=== PATIENT | female | born 1945 | race Caucasian/White ===

== ENCOUNTER 2016-06-29 12:09 | Inpatient (IN) | payer MEDICARE, MEDICAID ==
[2016-06-29] MEDS ORDERED: ASPIRIN 81 MG TABLET, CHEWABLE PO ONE (12:25)
--- NOTE | 2016-06-29 12:25 | ER Document Report ---
ED Medical Screen (RME) - General Stated Complaint: DIFFICULTY BREATHING Notes: anxiety and overwhelmed with social issues with neighbor at home chest pressure substernal, without radiation that started yesterday and has not gone away. denies h/o chest pain admits to nausea over the past couple of days (+) BRBPR (chronic) PMH: HTN, DM, chest pain former tobacco use unknown HLD due for a cardiac stress test on 07/23, never had one before, denies cardiac cath I have greeted and performed a rapid initial assessment of this patient. A comprehensive ED assessment and evaluation of the patient, analysis of test results and completion of the medical decision making process will be conducted by additional ED providers. TRAVEL OUTSIDE OF THE [place] IN LAST 30 DAYS: No - Related Data Allergies/Adverse Reactions: cephalexin monohydrate [From Keflex] Allergy (Verified 06/29/16 12:15) ciprofloxacin [From Cipro] Allergy (Verified 06/29/16 12:15) ciprofloxacin HCl [From Cipro] Allergy (Verified 06/29/16 12:15) erythromycin base [Erythromycin Base] Allergy (Verified 06/29/16 12:15) Penicillins Allergy (Verified 06/29/16 12:15) Past Medical History - Past Medical History Cardiac Medical History: Reports: Hx Congestive Heart Failure, Hx Hypertension Pulmonary Medical History: Reports: Hx Asthma, Hx COPD, Hx Pneumonia Denies: Hx Tuberculosis Endocrine Medical History: Reports: Hx Diabetes Mellitus Type 2 GI Medical History: Reports: Hx Gastroesophageal Reflux Disease Psychiatric Medical History: Denies: Hx Depression Past Surgical History: Reports: Hx Appendectomy, Hx Hysterectomy - Immunizations Hx Diphtheria, Pertussis, Tetanus Vaccination: No
[2016-06-29 14:01] LABS: ABSOLUTE BASOPHILS # (AUTO) 0.1 10^3/uL (0.0-0.2); ABSOLUTE EOSINOPHILS # (AUTO) 0.1 10^3/uL (0.0-0.6); ABSOLUTE LYMPHOCYTES (AUTO) 1.6 10^3/uL (0.5-4.7); ABSOLUTE MONOCYTES (AUTO) 0.8 10^3/uL (0.1-1.4); ABSOLUTE NEUT (AUTO) 7.2 10^3/uL (1.7-8.2); BASOPHILS % (AUTO) 0.6 % (0-2); EOSINOPHILS % (AUTO) 1.2 % (0-6); HGB HCT DIFFERENCE -1.6; LYMPHOCYTES % (AUTO) 16.3 % (13-45); MEAN CORPUSCULAR HEMOGLOBIN 19.9 pg (27.0-33.4); MEAN CORPUSCULAR HGB CONC 30.9 g/dL (32.0-36.0); MEAN CORPUSCULAR VOLUME 65 fl (80-97); MONOCYTES % (AUTO) 8.1 % (3-13); RED CELL DISTRIBUTION WIDTH 18.5 % (11.5-14.0); SEGMENTED NEUTROPHILS % (AUTO) 73.8 % (42-78); WHITE BLOOD COUNT 9.7 10^3/uL (4.0-10.5)
[2016-06-29 14:20] LABS: ALANINE AMINOTRANSFERASE 17 U/L (9-52); ALBUMIN 2.6 g/dL (3.5-5.0); ALKALINE PHOSPHATASE 117 U/L (38-126); ANION GAP 13 (5-19); ASPARTATE AMINO TRANSFERASE 12 U/L (14-36); BILIRUBIN,TOTAL 0.4 mg/dL (0.2-1.3); BLOOD UREA NITROGEN 14 mg/dL (7-20); CALCIUM 7.9 mg/dL (8.4-10.2); CARBON DIOXIDE 24 mmol/L (22-30); CHLORIDE 105 mmol/L (98-107); CREATINE KINASE 22 U/L (30-135); CREATININE RESULT 0.89 mg/dL (0.52-1.25); GLUCOSE 85 mg/dL (75-110); LIPASE 39.9 U/L (23-300); POTASSIUM 3.4 mmol/L (3.6-5.0); SODIUM 141.5 mmol/L (137-145); TOTAL PROTEIN 6.8 g/dL (6.3-8.2)
[2016-06-29 14:22] LABS: ANISOCYTOSIS 1+; HYPOCHROMASIA 1+; MICROCYTOSIS 3+; PLATELET CLUMPS PRESENT
[2016-06-29 14:28] LABS: HEMOGLOBIN 6.8 g/dL (12.0-15.5)
[2016-06-29 14:39] LABS: CREATINE KINASE MB 0.23 ng/mL (<4.55); TROPONIN I < 0.012 ng/mL
[2016-06-29] MEDS ORDERED: NORMAL SALINE 1000 ML 500 ML IV ONE (15:48)
[2016-06-29] MEDS ORDERED: NORMAL SALINE 250 ML IV PRN ×3 (15:59→16:54)
[2016-06-29] MEDS ORDERED: POTASSIUM CHLORIDE 10 MEQ TABLET.SA PO ONE (15:59)
[2016-06-29] MEDS ORDERED: MAGNESIUM SULFATE/D5W 100 ML IV ONE (15:59)
--- NOTE | 2016-06-29 16:04 | EKG REPORT ---
SEVERITY:- ABNORMAL ECG - SINUS RHYTHM RIGHT BUNDLE BRANCH BLOCK : Confirmed by: Juventino Cosme 29-Jun-2016 16:03:12
[2016-06-29] MEDS ORDERED: IPRATROPIUM/ALBUTEROL 0.5-2.5 MG/3 ML AMPUL NEB PRN (16:49)
[2016-06-29] MEDS ORDERED: ACETAMINOPHEN 325 MG TABLET PO PRN (16:49)
[2016-06-29] MEDS ORDERED: DEXTROSE 50%-WATER 25 GM/50 ML DISP.SYRIN IV PRN ×2 (16:54)
[2016-06-29] MEDS ORDERED: GLUCAGON,HUMAN RECOMB 1 MG INJ IM PRN (16:54)
[2016-06-29] MEDS ORDERED: DEXTROSE 40% GEL 15 GM TUBE PO PRN ×2 (16:54)
[2016-06-29] MEDS ORDERED: INSULIN LISPRO 100 UNIT/ML 3 ML VIAL SUBCUT PRN (16:54)
--- NOTE | 2016-06-29 16:59 | ER Document Report ---
ED General - General Chief Complaint: Shortness Of Breath Stated Complaint: DIFFICULTY BREATHING TRAVEL OUTSIDE OF THE [place] IN LAST 30 DAYS: No - HPI Patient complains to provider of: shortness of breath weakness difficulty breathing chest pressure Notes: Patient presents today with multiple complaints most concerning of which chest pressure shortness of breath difficulty breathing. Patient states is been ongoing for the last 2 days. Patient states no recent travel no recent antibiotics denies any nausea vomiting diarrhea. Patient denies any dark or bloody stools. Patient denies any changes to her medications. Patient denies any alcohol. Patient states used to be a smoker". - Related Data Allergies/Adverse Reactions: cephalexin monohydrate [From Keflex] Allergy (Verified 06/29/16 12:15) ciprofloxacin [From Cipro] Allergy (Verified 06/29/16 12:15) ciprofloxacin HCl [From Cipro] Allergy (Verified 06/29/16 12:15) erythromycin base [Erythromycin Base] Allergy (Verified 06/29/16 12:15) Penicillins Allergy (Verified 06/29/16 12:15) Home Medications: Current Home Medications Aspirin [Aspirin 81 mg Chewable Tablet] 81 mg PO DAILY 06/29/16 [History] Atenolol [Tenormin 50 mg Tablet] 50 mg PO BID 06/29/16 [History] Ferrous Sulfate [Iron] 325 mg PO BID 06/29/16 [History] Lisinopril [Prinivil 2.5 mg Tablet] 2.5 mg PO DAILY 06/29/16 [History] Metformin HCl [Metformin HCl ER] 1,000 mg PO QPM 06/29/16 [History] Metformin HCl [Metformin HCl ER] 500 mg PO QAM 06/29/16 [History] Omeprazole 20 mg PO DAILY 06/29/16 [History] Past Medical History - Social History Smoking Status: Unknown if Ever Smoked Family History: Reviewed & Not Pertinent - Past Medical History Cardiac Medical History: Reports: Hx Congestive Heart Failure, Hx Hypertension Pulmonary Medical History: Reports: Hx Asthma, Hx COPD, Hx Pneumonia Denies: Hx Tuberculosis Endocrine Medical History: Reports: Hx Diabetes Mellitus Type 2 GI Medical History: Reports: Hx Gastroesophageal Reflux Disease Psychiatric Medical History: Denies: Hx Depression Past Surgical History: Reports: Hx Appendectomy, Hx Hysterectomy - Immunizations Hx Diphtheria, Pertussis, Tetanus Vaccination: No Review of Systems - Review of Systems Constitutional: Weakness EENT: No symptoms reported Cardiovascular: Chest pain Respiratory: Short of breath Gastrointestinal: No symptoms reported Genitourinary: No symptoms reported Female Genitourinary: No symptoms reported Musculoskeletal: No symptoms reported Skin: No symptoms reported Hematologic/Lymphatic: No symptoms reported Neurological/Psychological: No symptoms reported -: Yes All other systems reviewed and negative Physical Exam - Vital signs Vitals: Temp Pulse Resp BP 97.8 F 81 22 H 103/42 L 06/29/16 12:17 06/29/16 12:17 06/29/16 12:17 06/29/16 12:17 Interpretation: Normal - General General appearance: Appears well, Alert - HEENT Head: Normocephalic, Atraumatic Eyes: Normal Pupils: PERRL - Respiratory Respiratory status: No respiratory distress Chest status: Nontender Breath sounds: Normal Chest palpation: Normal - Cardiovascular Rhythm: Regular Heart sounds: Normal auscultation Murmur: No - Abdominal Inspection: Obese Distension: No distension Bowel sounds: Normal Tenderness: Nontender Organomegaly: No organomegaly - Rectal Tenderness: Yes Stool: Heme negative Hemorrhoids: None - Back Back: Normal, Nontender - Extremities General upper extremity: Normal inspection, Nontender, Normal color, Normal ROM , Normal temperature General lower extremity: Normal inspection, Nontender, Normal color, Normal ROM , Normal temperature, Normal weight bearing. No: Sana's sign - Neurological Neuro grossly intact: Yes Cognition: Normal Orientation: AAOx4 Cameron Coma Scale Eye Opening: Spontaneous Cameron Coma Scale Verbal: Oriented [place] Coma Scale Motor: Obeys Commands K[place]ly Coma Scale Total: 15 Speech: Normal Motor strength normal: LUE, RUE, LLE, RLE Sensory: Normal - Psychological Associated symptoms: Normal affect, Normal mood - Skin Skin Temperature: Warm Skin Moisture: Dry Skin Color: Normal Course - Re-evaluation Re-evalutation: 06/29/16 22:26 Patient workup does show patient has anemia more likely causes him of her symptoms started chest pain shortness of breath. Patient will need to have a transfusion. Concern for nodule seen in chest. Discussed with PCP agrees with CTA CT of chest to evaluate nodules also requesting a CT of the abdomen to look for metastatic disease. Patient was admitted. This follow-up on CT scans with covering weekend physician Dr. Lepe informed patient has diffuse metastatic disease states he would reviewed reports. Patient will have blood transfusion will be admitted for further evaluation. - Vital Signs Vital signs: Temp Pulse Resp BP Pulse Ox 98.7 F 75 20 87/48 L 100 06/29/16 21:36 06/29/16 21:36 06/29/16 21:36 06/29/16 21:36 06/29/16 21:36 - Laboratory Result Diagrams: 06/29/16 13:15 06/29/16 13:15 Laboratory results interpreted by me: 06/29/16 06/29/16 06/29/16 13:15 13:15 13:15 RBC 3.40 L Hgb 6.8 L Hct 22.0 L MCV 65 L MCH 19.9 L MCHC 30.9 L RDW 18.5 H Plt Count 551 H Potassium 3.4 L Calcium 7.9 L Magnesium 1.3 L AST 12 L Creatine Kinase 22 L Albumin 2.6 L Crossmatch 06/29/16 15:35 RBC Hgb Hct MCV MCH MCHC RDW Plt Count Potassium Calcium Magnesium AST Creatine Kinase Albumin Crossmatch See Detail Critical Care Note - Critical Care Note Total time excluding time spent on procedures (mins): 35 Comments: Multiple evaluations patient with anemia requiring transfusion Discharge - Discharge Clinical Impression: Anemia requiring transfusions, Shortness of breath, Chest pressure, Multiple lung nodules, Pelvic mass Condition: Good Disposition: HOME, SELF-CARE Admitting Provider: [facility] Unit Admitted: [facility]
--- NOTE | 2016-06-29 17:57 | PDOC H&P ---
History of Present Illness Admission Date/PCP: Sloane Sanders Patient complains of: Shortness of the breath History of Present Illness: ISH VANN is a 71 year old female This is a 71-year-old female with a significant history of COPD and chronic smoker history of the hypertensin's hyperlipidemia and morbid obesity and also history of the cardiomyopathy and multiple other comorbidity came to the emergency department complaining of shortness of the breath and cough and congestions since last several days also complains chest pain heaviness in the chest on and off this last couple of days and getting more worse and is very noncompliance patient is not following is supposed to also found performed anemia hemoglobin was 6.8. Patient's also see her Dr. Duke in April and scheduled for endoscopy and colonoscopy patient's missed that appointment also scheduled for a stress test per cardiology also missed appointment patient also have a some on and off blood in the stool for last several years and patient on and off anemia problem . Patient also noticed some [place] irritations and the bleeding but not today patient have a complete hysterectomy done in by Dr. garnett. When I saw the patient in the ER patient is comfortably laying on a bad any chest pain and no shortness of the breath since chest x-ray and pulmonary nodules and patient's guaiac stool is negative to this point so granddaughters in the bedside and discussed with the granddaughter of the patient's conditions and admitted in the hospital for further evaluation and treatment patient also goingi received the doing the blood. Past Medical History Cardiac Medical History: Reports: Congestive Heart Failure, Hypertension Pulmonary Medical History: Reports: Asthma, Chronic Obstructive Pulmonary Disease (COPD), Pneumonia Denies: Tuberculosis Endocrine Medical History: Reports: Diabetes Mellitus Type 2 GI Medical History: Reports: Gastroesophageal Reflux Disease Psychiatric Medical History: Denies: Depression Hematology: Reports: Anemia Past Surgical History Past Surgical History: Reports: Appendectomy, Hysterectomy Social History Smoking Status: Current Every Day Smoker Frequency of Alcohol Use: None Hx Recreational Drug Use: No Hx Prescription Drug Abuse: No Family History Family History: Reviewed & Not Pertinent Parental Family History Reviewed: Yes Children Family History Reviewed: Yes Sibling(s) Family History Reviewed.: Yes Medication/Allergy Home Medications: Albuterol Sulfate [Proair HFA Inhalation Aerosol 8.5 gm MDI] 8.5 gm PO DAILY 02/07 Atenolol [Tenormin 50 mg Tablet] 50 mg PO DAILY 11/02/13 Clopidogrel Bisulfate [Plavix] 75 mg .ROUTE DAILY 11/02/13 Diphenhydramine HCl 25 mg PO ACBRKFST 11/02/13 Fluconazole [Diflucan] 150 mg PO DAILY 11/02/13 Gabapentin 100 mg PO DAILY 11/02/13 Lisinopril [Prinivil 2.5 mg Tablet] 2.5 mg PO DAILY 11/02/13 Metformin HCl [Glucophage 500 mg Tablet] 500 mg PO BID 11/02/13 Omeprazole 20 mg PO DAILY 11/02/13 Ferrous Sulfate [Feosol 325 mg Tablet] 325 mg PO BIDPCBS #60 tablet 11/07/13 Furosemide [Lasix 20 mg Tablet] 20 mg PO DAILY #30 tablet 11/07/13 Guaifenesin [Robitussin Syrup 200 mg/10 ml Ud Cup] 200 mg PO Q6HP PRN #400 udc 11/07/13 Nystatin [Mycostatin Topical Powder 15 gm] 1 applic TP BID #1 bottle 11/07/13 Prednisone [Deltasone 20 mg Tablet] 20 mg PO DAILY #7 tablet 11/07/13 Doxycycline Hyclate 100 mg PO BID #20 tablet. 09/28/14 Prednisone [Deltasone 10 mg Tablet] 10 mg PO ASDIR PRN #21 tablet 09/28/14 Allergies/Adverse Reactions: cephalexin monohydrate [From Keflex] Allergy (Verified 06/29/16 12:15) ciprofloxacin [From Cipro] Allergy (Verified 06/29/16 12:15) ciprofloxacin HCl [From Cipro] Allergy (Verified 06/29/16 12:15) erythromycin base [Erythromycin Base] Allergy (Verified 06/29/16 12:15) Penicillins Allergy (Verified 06/29/16 12:15) Review of Systems Constitutional: PRESENT: fatigue, weakness. ABSENT: chills, fever(s), headache( s), weight gain, weight loss Eyes: ABSENT: visual disturbances Ears: ABSENT: hearing changes Cardiovascular: PRESENT: chest pain, dyspnea on exertion. ABSENT: edema, orthropnea, palpitations Respiratory: PRESENT: cough, dyspnea. ABSENT: hemoptysis Gastrointestinal: ABSENT: abdominal pain, constipation, diarrhea, hematemesis, hematochezia, nausea, vomiting Genitourinary: ABSENT: dysuria, hematuria Musculoskeletal: ABSENT: joint swelling Integumentary: ABSENT: rash, wounds Neurological: ABSENT: abnormal gait, abnormal speech, confusion, dizziness, focal weakness, syncope Psychiatric: ABSENT: anxiety, depression, homidical ideation, suicidal ideation Endocrine: ABSENT: cold intolerance, heat intolerance, menstrual abnormalities, polydipsia, polyuria Hematologic/Lymphatic: ABSENT: easy bleeding, easy bruising, lymphadenopathy Physical Exam Vital Signs: Temp Pulse Resp BP Pulse Ox 97.8 F 81 22 H 103/42 L 06/29/16 12:17 06/29/16 12:17 06/29/16 12:17 06/29/16 12:17 Intake & Output 06/28/16 06/29/16 06/30/16 06:59 06:59 06:59 Weight 132.903 kg General appearance: PRESENT: no acute distress Head exam: PRESENT: normocephalic Eye exam: PRESENT: conjunctiva pale, PERRLA Mouth exam: PRESENT: neck supple Neck exam: ABSENT: carotid bruit, full ROM, JVD, lymphadenopathy, meningismus, tenderness, thyromegaly, tracheal deviation, tracheostomy, other Respiratory exam: PRESENT: clear to auscultation shireen. ABSENT: wheezes Cardiovascular exam: PRESENT: +S1, +S2 GI/Abdominal exam: PRESENT: normal bowel sounds, soft. ABSENT: tenderness Rectal exam: PRESENT: heme (-) stool Extremities exam: PRESENT: pedal edema Additional comments: Chronic venous dermatitis in the both lower extremity Neurological exam: PRESENT: alert, awake, oriented to person, oriented to place , oriented to time, oriented to situation Psychiatric exam: PRESENT: anxious Results Laboratory Results: 06/29/16 13:15 06/29/16 13:15 06/29/16 06/29/16 06/29/16 13:15 13:15 13:15 WBC 9.7 RBC 3.40 L Hgb 6.8 L Hct 22.0 L MCV 65 L MCH 19.9 L MCHC 30.9 L RDW 18.5 H Plt Count 551 H Seg Neutrophils % 73.8 Lymphocytes % 16.3 Monocytes % 8.1 Eosinophils % 1.2 Basophils % 0.6 Absolute Neutrophils 7.2 Absolute Lymphocytes 1.6 Absolute Monocytes 0.8 Absolute Eosinophils 0.1 Absolute Basophils 0.1 Sodium 141.5 Potassium 3.4 L Chloride 105 Carbon Dioxide 24 Anion Gap 13 BUN 14 Creatinine 0.89 Est GFR ( Amer) > 60 Est GFR (Non-Af Amer) > 60 Glucose 85 Calcium 7.9 L Magnesium 1.3 L Total Bilirubin 0.4 AST 12 L ALT 17 Alkaline Phosphatase 117 Total Protein 6.8 Albumin 2.6 L Lipase 39.9 Stool Occult Blood Blood Type Antibody Screen 06/29/16 06/29/16 15:35 15:35 WBC RBC Hgb Hct MCV MCH MCHC RDW Plt Count Seg Neutrophils % Lymphocytes % Monocytes % Eosinophils % Basophils % Absolute Neutrophils Absolute Lymphocytes Absolute Monocytes Absolute Eosinophils Absolute Basophils Sodium Potassium Chloride Carbon Dioxide Anion Gap BUN Creatinine Est GFR ( Amer) Est GFR (Non-Af Amer) Glucose Calcium Magnesium Total Bilirubin AST ALT Alkaline Phosphatase Total Protein Albumin Lipase Stool Occult Blood NEGATIVE Blood Type A POSITIVE Antibody Screen NEGATIVE 06/29/16 06/29/16 13:15 13:15 Creatine Kinase 22 L CK-MB (CK-2) 0.23 Troponin I < 0.012 Impressions: Chest X-Ray 06/29/16 12:25 IMPRESSION: Findings worrisome for multiple pulmonary nodules. Chest CT recommended for followup Assessment & Plan - Diagnosis (1) Anemia requiring transfusions Is this a current diagnosis for this admission?: YesPlan: Transfused 2 units of blood and no sign of any active GI bleed the still consult the GI and also consult the value stream manager evaluations (2) COPD (chronic obstructive pulmonary disease) Qualifiers: COPD type: chronic bronchitis Is this a current diagnosis for this admission?: YesPlan: Nebulizer treatments (3) Chest pressure Is this a current diagnosis for this admission?: YesPlan: We will get cardiac enzymes every 63 and consult the cardiology the multiple risk factor (4) Benign essential HTN Is this a current diagnosis for this admission?: YesPlan: Continue current medications (5) Type II diabetes mellitus Qualifiers: Diabetes mellitus complication status: with unspecified complications Is this a current diagnosis for this admission?: YesPlan: Continues a sliding scale with [facility] protocol (6) Congestive heart failure Qualifiers: Congestive heart failure type: diastolic Congestive heart failure chronicity: chronic Qualified Code(s): I50.32 - Chronic diastolic ( congestive) heart failure Is this a current diagnosis for this admission?: YesPlan: Continues the current medications (7) Venous dermatitis Qualifiers: Laterality: bilateral Qualified Code(s): I83.11 - Varicose veins of right lower extremity with inflammation; I83.12 - Varicose veins of left lower extremity with inflammation Is this a current diagnosis for this admission?: YesPlan: Symmetrical chronic venous insufficiency and patient's see Dr. Terry Lay and wound care as outpatient (8) Multiple lung nodules Is this a current diagnosis for this admission?: YesPlan: Order the CT scan of chest (9) Shortness of breath Is this a current diagnosis for this admission?: YesPlan: From the possible anemia and the COPD - Time Time Spent: 50 to 70 Minutes Medications reviewed and adjusted accordingly: Yes Anticipated discharge: Home - Inpatient Certification Medical Necessity: Significant Comorbidiites Make Outpatient Treatment Too Risky , Need For Continuous Telemetry Monitoring, Need for Nebulizer Therapy and Monitoring of Response Post Hospital Care: D/C Courtroom Deputy Or Calendar Clerk Documentation - Plan Summary Plan Summary: Very extensive discussions with the patient about noncompliance and also discussed with the granddaughter she is taking care of the patient patient's he wants to be her about poa. Assess about the patient's chronic conditions with acute finding and the test results and will see how the patient's does that patient is currently is a full code
[2016-06-29 18:00] LABS: CREATINE KINASE MB < 0.22 ng/mL (<4.55); TROPONIN I < 0.012 ng/mL
[2016-06-29] MEDS: LANSOPRAZOLE 30 MG TAB.RAP.DR PO SCH (19:00)
[2016-06-29 19:45] LABS: FOLATE 4.19 ng/mL (>2.76)
[2016-06-29 23:30] LABS: CREATINE KINASE MB < 0.22 ng/mL (<4.55); TROPONIN I < 0.012 ng/mL
[2016-06-30 04:56] LABS: ABSOLUTE BASOPHILS # (AUTO) 0.1 10^3/uL (0.0-0.2); ABSOLUTE EOSINOPHILS # (AUTO) 0.1 10^3/uL (0.0-0.6); ABSOLUTE LYMPHOCYTES (AUTO) 1.5 10^3/uL (0.5-4.7); ABSOLUTE MONOCYTES (AUTO) 0.8 10^3/uL (0.1-1.4); ABSOLUTE NEUT (AUTO) 7.4 10^3/uL (1.7-8.2); BASOPHILS % (AUTO) 0.5 % (0-2); EOSINOPHILS % (AUTO) 1.2 % (0-6); HEMATOCRIT 23.9 % (36.0-47.0); HGB HCT DIFFERENCE -1.1; LYMPHOCYTES % (AUTO) 15.4 % (13-45); MEAN CORPUSCULAR HEMOGLOBIN 21.3 pg (27.0-33.4); MEAN CORPUSCULAR HGB CONC 31.7 g/dL (32.0-36.0); MEAN CORPUSCULAR VOLUME 67 fl (80-97); RED BLOOD COUNT 3.56 10^6/uL (3.72-5.28); RED CELL DISTRIBUTION WIDTH 21.1 % (11.5-14.0); SEGMENTED NEUTROPHILS % (AUTO) 74.9 % (42-78); WHITE BLOOD COUNT 9.9 10^3/uL (4.0-10.5)
[2016-06-30 05:03] LABS: HEMOGLOBIN 7.6 g/dL (12.0-15.5)
[2016-06-30 05:17] LABS: ANION GAP 8 (5-19); BLOOD UREA NITROGEN 12 mg/dL (7-20); CALCIUM 7.7 mg/dL (8.4-10.2); CARBON DIOXIDE 24 mmol/L (22-30); CHLORIDE 107 mmol/L (98-107); CREATINE KINASE 25 U/L (30-135); CREATININE RESULT 0.85 mg/dL (0.52-1.25); GLUCOSE 87 mg/dL (75-110); POTASSIUM 3.4 mmol/L (3.6-5.0); SODIUM 139.2 mmol/L (137-145)
[2016-06-30 05:31] LABS: CREATINE KINASE MB < 0.22 ng/mL (<4.55); TROPONIN I < 0.012 ng/mL
[2016-06-30] MEDS ORDERED: NORMAL SALINE 250 ML IV PRN ×2 (05:57)
[2016-06-30] MEDS: LANSOPRAZOLE 30 MG TAB.RAP.DR PO SCH ×2 (06:32→17:26)
--- NOTE | 2016-06-30 11:03 | PDOC CONSULTATION ---
Consultation Consult Date: 06/30/16 Attending physician:: CADY ARBOLEDA Consult reason:: Asked by Dr. Arboleda to see patient with severe anemia, colonic mass, pulmonary nodules History of Present Illness Admission Date/PCP: 06/29/16 16:49 Sloane Sanders Patient complains of: Anemia, weakness, rectal bleeding History of Present Illness: 71-year-old female with what seems to be a year-long history of rectal bleeding , she is been passing clots per rectum, was seen as an outpatient by gastroenterology and recommended to have EGD and colonoscopy, but unfortunately transportation issues have prevented her from making her appointments. She presented with a hemoglobin of 7, ferritin of 30, saturation low, consistent with blood loss anemia. Dr. Arboleda admitted her, we recommended workup with CT of the chest abdomen pelvis, this indicated a large left pelvic mass, seems to be contiguous with rectum, sigmoid area, there also were bilateral pulmonary nodules, the largest was in the right lower lobe 2 cm. I discussed her case with radiology, they believe this is probably a colorectal cancer, and recommended colonoscopy for further evaluation. Of note, however, the right lower lobe nodule is accessible by CT-guided biopsy. She has had a total hysterectomy done in 1979 so the CAD[facility] DECK source is unlikely. Past Medical History Cardiac Medical History: Reports: Congestive Heart Failure, Hypertension Pulmonary Medical History: Reports: Asthma, Chronic Obstructive Pulmonary Disease (COPD), Pneumonia Denies: Tuberculosis Endocrine Medical History: Reports: Diabetes Mellitus Type 2 GI Medical History: Reports: Gastroesophageal Reflux Disease Psychiatric Medical History: Denies: Depression Hematology: Reports: Anemia Past Surgical History Past Surgical History: Reports: Appendectomy, Hysterectomy - Total Social History Smoking Status: Former Smoker Cigarettes Packs Per Day: 1 Number of Years Smokin Last Time Smoked: 06/07/16 Frequency of Alcohol Use: Social Hx Recreational Drug Use: No Hx Prescription Drug Abuse: No - Advance Directive Resuscitation Status: Full Code Family History Family History: Reviewed & Not Pertinent Parental Family History Reviewed: Yes Children Family History Reviewed: Yes Sibling(s) Family History Reviewed.: Yes Medication/Allergy Home Medications: Aspirin [Aspirin 81 mg Chewable Tablet] 81 mg PO DAILY 06/29/16 Atenolol [Tenormin 50 mg Tablet] 50 mg PO BID 06/29/16 Ferrous Sulfate [Iron] 325 mg PO BID 06/29/16 Lisinopril [Prinivil 2.5 mg Tablet] 2.5 mg PO DAILY 06/29/16 Metformin HCl [Metformin HCl ER] 1,000 mg PO QPM 06/29/16 Metformin HCl [Metformin HCl ER] 500 mg PO QAM 06/29/16 Omeprazole 20 mg PO DAILY 06/29/16 Allergies/Adverse Reactions: cephalexin monohydrate [From Keflex] Allergy (Verified 06/29/16 12:15) ciprofloxacin [From Cipro] Allergy (Verified 06/29/16 12:15) ciprofloxacin HCl [From Cipro] Allergy (Verified 06/29/16 12:15) erythromycin base [Erythromycin Base] Allergy (Verified 06/29/16 12:15) Penicillins Allergy (Verified 06/29/16 12:15) Review of Systems Constitutional: PRESENT: fatigue, weakness Cardiovascular: PRESENT: dyspnea on exertion Gastrointestinal: PRESENT: abdominal pain, bloating, hematochezia Musculoskeletal: ABSENT: joint swelling Neurological: ABSENT: abnormal gait, abnormal speech, confusion, dizziness, focal weakness, syncope Physical Exam Vital Signs: Temp Pulse Resp BP Pulse Ox 98.8 F 79 18 103/54 L 99 06/30/16 07:44 06/30/16 07:44 06/30/16 07:44 06/30/16 07:44 06/30/16 07:44 Intake & Output 06/29/16 06/30/16 07/01/16 06:59 06:59 06:59 Intake Total 945 Balance 945 Weight 138.4 kg General appearance: PRESENT: no acute distress, well-developed, well-nourished Head exam: PRESENT: atraumatic, normocephalic Eye exam: PRESENT: conjunctiva pink, EOMI, PERRLA. ABSENT: scleral icterus Ear exam: PRESENT: normal external ear exam Mouth exam: PRESENT: moist, tongue midline Neck exam: ABSENT: carotid bruit, JVD, lymphadenopathy, thyromegaly Respiratory exam: PRESENT: clear to auscultation shireen. ABSENT: rales, rhonchi, wheezes Cardiovascular exam: PRESENT: RRR. ABSENT: diastolic murmur, rubs, systolic murmur Pulses: PRESENT: normal dorsalis pedis pul Vascular exam: PRESENT: normal capillary refill GI/Abdominal exam: PRESENT: normal bowel sounds, soft. ABSENT: distended, guarding, mass, organolmegaly, rebound, tenderness Rectal exam: PRESENT: deferred Extremities exam: PRESENT: full ROM. ABSENT: calf tenderness, clubbing, pedal edema Neurological exam: PRESENT: alert, awake, oriented to person, oriented to place , oriented to time, oriented to situation, CN II-XII grossly intact. ABSENT: motor sensory deficit Psychiatric exam: PRESENT: appropriate affect, normal mood. ABSENT: homicidal ideation, suicidal ideation Skin exam: PRESENT: dry, intact, warm. ABSENT: cyanosis, rash Results Laboratory Results: 06/30/16 04:39 06/30/16 04:39 06/29/16 06/30/16 06/30/16 17:20 04:39 04:39 WBC 9.9 RBC 3.56 L Hgb 7.6 L Hct 23.9 L MCV 67 L MCH 21.3 L MCHC 31.7 L RDW 21.1 H Plt Count 495 H Seg Neutrophils % 74.9 Lymphocytes % 15.4 Monocytes % 8.0 Eosinophils % 1.2 Basophils % 0.5 Absolute Neutrophils 7.4 Absolute Lymphocytes 1.5 Absolute Monocytes 0.8 Absolute Eosinophils 0.1 Absolute Basophils 0.1 Sodium 139.2 Potassium 3.4 L Chloride 107 Carbon Dioxide 24 Anion Gap 8 BUN 12 Creatinine 0.85 Est GFR ( Amer) > 60 Est GFR (Non-Af Amer) > 60 Glucose 87 Calcium 7.7 L Iron < 10 L TIBC 194 L % Saturation UNABLE TO CALCULATE Ferritin 35.70 Vitamin B12 310.0 Folate 4.19 06/29/16 06/29/16 06/29/16 17:20 17:20 22:50 Creatine Kinase 22 L 24 L CK-MB (CK-2) < 0.22 Troponin I < 0.012 06/29/16 06/30/16 06/30/16 22:50 04:39 04:39 Creatine Kinase 25 L CK-MB (CK-2) < 0.22 < 0.22 Troponin I < 0.012 < 0.012 Impressions: Chest CT 06/29/16 00:00 IMPRESSION: Multiple randomly distributed bilateral pulmonary nodules, the largest is in the right lower lobe measuring 2 cm, this suggests pulmonary metastatic disease. NO PULMONARY EMBOLI. Pelvis Ultrasound 06/29/16 00:00 IMPRESSION: 6.9 cm left pelvic mass. Chest X-Ray 06/29/16 12:25 IMPRESSION: Findings worrisome for multiple pulmonary nodules. Chest CT recommended for followup Chest/Abdomen CTA 06/29/16 15:46 IMPRESSION: Multiple randomly distributed bilateral pulmonary nodules, the largest is in the right lower lobe measuring 2 cm, this suggests pulmonary metastatic disease. NO PULMONARY EMBOLI. Abdomen/Pelvis CT 06/29/16 16:58 IMPRESSION: Diffuse inflammatory changes are present with a rim enhancing 6.8 cm heterogeneous mass with contact with the bladder base as well as the sigmoid colon. There is also diffuse thickening in the rectum and distal sigmoid colon with 5 cm heterogeneously an enhancing nodular mass in the right lateral wall with diffuse wall thickening throughout this region. Moderate left-sided hydronephrosis and hydroureter due to the pelvic inflammatory mass. Multiple bilateral pulmonary nodules. Status: Image reviewed by me Assessment & Plan - Diagnosis (1) Pelvic mass Is this a current diagnosis for this admission?: YesPlan: Most likely to be a colorectal cancer with spread to the lung with pulmonary nodules, I discussed her case with general surgery, to see if they could do a colonoscopy or some sort of laparoscopic procedure to diagnosis. 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 She certainly requires a colonoscopy for diagnosis. (2) Multiple lung nodules Is this a current diagnosis for this admission?: YesPlan: Probable spread from a GI source, CT-guided biopsy of the right lower lobe would be possible, but this would be a second choice to colonoscopy. (3) Anemia requiring transfusions Is this a current diagnosis for this admission?: YesPlan: Blood loss, iron deficiency anemia, plan for IV iron today. - Time Time Spent: Greater than 70 Minutes Critical Time spent with patient: 35 or more minutes Medications reviewed and adjusted accordingly: Yes - Inpatient Certification Based on my medical assessment, after consideration of the patient's comorbidities, presenting symptoms, or acuity I expect that the services needed warrant INPATIENT care.: Yes I certify that my determination is in accordance with my understanding of Medicare's requirements for reasonable and necessary INPATIENT services [42 CFR 412.3e].: Yes Medical Necessity: Failure to Improve With Outpatient Therapy, Need Close Monitoring Due to Risk of Patient Decompensation, Need For IV Fluids, Need for Surgery
[2016-06-30] MEDS ORDERED: FERUMOXYTOL (NON-ESRD) 510 MG/NS 100 ML IV ONE ×2 (12:30)
--- NOTE | 2016-06-30 16:42 | PDOC PROGRESS REPORT ---
Subjective Progress Note for:: 06/30/16 Subjective:: She was seen by the bedside, she was admitted yesterday when she presented with severe anemia . CT scan was done, she was found to have a large pelvic mass with probable lung metastases, CTA chest shows multiple pulmonary nodules consistent with metastatic disease. She was seen today by oncology, Dr. Goodwin and the plan is for her to have a CT-guided tissue biopsy on Saturday. So far she has had 3 units of packed red blood cells transfusion. Physical Exam Vital Signs: Temp Pulse Resp BP Pulse Ox 99.0 F 81 16 98/48 L 100 06/30/16 14:26 06/30/16 14:26 06/30/16 14:26 06/30/16 14:26 06/30/16 14:26 Intake & Output 06/29/16 06/30/16 07/01/16 06:59 06:59 06:59 Intake Total 945 350 Balance 945 350 Weight 138.4 kg 138.4 kg General appearance: PRESENT: no acute distress Eye exam: PRESENT: PERRLA Respiratory exam: PRESENT: clear to auscultation shireen Cardiovascular exam: PRESENT: +S1, +S2 GI/Abdominal exam: PRESENT: soft Results Laboratory Results: 06/30/16 04:39 06/30/16 04:39 06/29/16 06/30/16 06/30/16 17:20 04:39 04:39 WBC 9.9 RBC 3.56 L Hgb 7.6 L Hct 23.9 L MCV 67 L MCH 21.3 L MCHC 31.7 L RDW 21.1 H Plt Count 495 H Seg Neutrophils % 74.9 Lymphocytes % 15.4 Monocytes % 8.0 Eosinophils % 1.2 Basophils % 0.5 Absolute Neutrophils 7.4 Absolute Lymphocytes 1.5 Absolute Monocytes 0.8 Absolute Eosinophils 0.1 Absolute Basophils 0.1 Sodium 139.2 Potassium 3.4 L Chloride 107 Carbon Dioxide 24 Anion Gap 8 BUN 12 Creatinine 0.85 Est GFR ( Amer) > 60 Est GFR (Non-Af Amer) > 60 Glucose 87 Calcium 7.7 L Iron < 10 L TIBC 194 L % Saturation UNABLE TO CALCULATE Ferritin 35.70 Vitamin B12 310.0 Folate 4.19 Stool Occult Blood 06/30/16 10:30 WBC RBC Hgb Hct MCV MCH MCHC RDW Plt Count Seg Neutrophils % Lymphocytes % Monocytes % Eosinophils % Basophils % Absolute Neutrophils Absolute Lymphocytes Absolute Monocytes Absolute Eosinophils Absolute Basophils Sodium Potassium Chloride Carbon Dioxide Anion Gap BUN Creatinine Est GFR ( Amer) Est GFR (Non-Af Amer) Glucose Calcium Iron TIBC % Saturation Ferritin Vitamin B12 Folate Stool Occult Blood POSITIVE 06/29/16 06/29/16 06/29/16 17:20 17:20 22:50 Creatine Kinase 22 L 24 L CK-MB (CK-2) < 0.22 Troponin I < 0.012 06/29/16 06/30/16 06/30/16 22:50 04:39 04:39 Creatine Kinase 25 L CK-MB (CK-2) < 0.22 < 0.22 Troponin I < 0.012 < 0.012 Impressions: Chest CT 06/29/16 00:00 IMPRESSION: Multiple randomly distributed bilateral pulmonary nodules, the largest is in the right lower lobe measuring 2 cm, this suggests pulmonary metastatic disease. NO PULMONARY EMBOLI. Pelvis Ultrasound 06/29/16 00:00 IMPRESSION: 6.9 cm left pelvic mass. Chest X-Ray 06/29/16 12:25 IMPRESSION: Findings worrisome for multiple pulmonary nodules. Chest CT recommended for followup Chest/Abdomen CTA 06/29/16 15:46 IMPRESSION: Multiple randomly distributed bilateral pulmonary nodules, the largest is in the right lower lobe measuring 2 cm, this suggests pulmonary metastatic disease. NO PULMONARY EMBOLI. Abdomen/Pelvis CT 06/29/16 16:58 IMPRESSION: Diffuse inflammatory changes are present with a rim enhancing 6.8 cm heterogeneous mass with contact with the bladder base as well as the sigmoid colon. There is also diffuse thickening in the rectum and distal sigmoid colon with 5 cm heterogeneously an enhancing nodular mass in the right lateral wall with diffuse wall thickening throughout this region. Moderate left-sided hydronephrosis and hydroureter due to the pelvic inflammatory mass. Multiple bilateral pulmonary nodules. Assessment & Plan - Diagnosis (1) Severe anemia Is this a current diagnosis for this admission?: YesPlan: She'll be transfused with blood (2) Pelvic mass Is this a current diagnosis for this admission?: YesPlan: Oncology following clearly she has metastatic disease
--- NOTE | 2016-06-30 20:48 | CONSULTATION REPORT E ---
Consultation Report NAME: ISH VANN : 1945 AGE: 71Y DATE: 06/30/2016 321 B TO: MARIANO PAEZ M.D. FROM: CADY ARBOLEDA M.D. Requesting Physician REASON FOR CONSULTATION: Intermittent chest pressure and shortness of breath. Note that the patient is very uncooperative. She says she is very tired and sleepy and would not give me a good history, no good review of symptoms obtained but these were obtained piecemeal from the patient and from her current records. HISTORY OF PRESENT ILLNESS: The patient is a 71-year-old female who has a history of COPD, who is also a smoker, hypertension, and diabetes mellitus type 2 noninsulin dependent, and history of chronic rectal bleeding intermittently, who as admitted with a two day history of shortness of breath. She denies any wheezing but says that the cough is productive of white phlegm. She had chronic orthopnea but no PND. She was found to have a hemoglobin of 6.8 with a hematocrit of 22 on admission and subsequently was given 2 units of packed RBCs and her hemoglobin came up to 7.6. The patient also states that she has intermittent chest pressure lasting for a few minutes to 15 minutes and they are not related to exertion. The patient has an EKG which is sinus rhythm with right bundle branch block pattern and her cardiac enzymes have been negative x3. The patient also has chronic leg edema with venostasis dermatitis and also has superficial ulcerations of the lower extremities and takes treatment from Dr. Selwyn Wiggins. The patient's chest x-ray shows bilateral pulmonary nodules. This is confirmed by a CTA which shows bilateral pulmonary nodules, the largest being 2 mm in the right lung. It thought to be metastatic disease although not proven. She also had CAT scan of her abdomen and pelvis. There is a mass which is 6.9 cm. This mass has diffuse intermittent changes present with a rim-enhancing 6.8 heterogenous mass with contact with the bladder base as well as the sigmoid colon and there is strong suspicion for colorectal cancer since there is also diffuse thickening in the rectum and the distal sigmoid colon with a 5 cm heterogeneously enhancing nodular mass in the right lateral wall with wall thickening throughout this region. There is a moderate left-sided hydronephrosis and hydroureter due to the pelvic inflammatory mass. Multiple bilateral pulmonary nodules are also noted. The patient is being worked up for possible colorectal cancer and with pulmonary nodules secondary to metastases. There is no TIA or CVA symptoms. There is no palpitations. There is no syncope. The patient denies any PND although she has chronic leg edema. She does have chronic orthopnea. PAST MEDICAL HISTORY: Positive history of congestive heart failure and hypertension. There is no history of myocardial infarction but her echocardiogram done in 2013 shows that the LV ejection fraction is mildly reduced at 45 to 50%. She has not had an echo since then. Pulmonary: She also has a history of asthma, COPD, and the patient continues to smoke. There is a past history of pneumonia. Endocrine: There is no history of thyroid disease. There is a history of diabetes mellitus type 2 noninsulin dependent. GI: She has a history of chronic intermittent rectal bleeding and clots to the rectum. She also has a foul smell she states that comes from rectal area. She also has a history of GERD. There is no history of hepatitis. Renal: There is no history of chronic kidney disease but the patient now, due to the pelvic inflammatory mass, has hydroureter and hydronephrosis on the left side, that is she has moderate left-sided hydronephrosis and hydroureter due to pelvic inflammatory mass. There is no symptoms of UTI. There is no hematuria, pyuria, or dysuria. Musculoskeletal: Denies arthritis or collagen vascular disease. PROFESSOR OF HISTORICAL THEOLOGY: There is no history of TIA or CVA. Psychiatric: There is no history of anxiety or depression but the patient is very uncooperative. Hematological: She has a history of anemia but no clotting disorders or bleeding. PAST SURGICAL HISTORY: She has a history of appendectomy and total hysterectomy. SOCIAL HISTORY: The patient smokes per day although the last time she smoked was 06/07/2016, hence the patient recently has stopped smoking. There is no ETOH abuse. ADVANCED DIRECTIVES: The patient is a FULL CODE. Her granddaughter is her surrogate health care decision maker. FAMILY HISTORY: Positive for hypertension and diabetes mellitus but no history of NJ. REVIEW OF SYMPTOMS: CONSTITUTIONAL: Denies any fevers, chills, or rigors. Complains of generalized fatigue and weakness. HEAD: Denies any head injury or headaches. EYES: No history of amblyopia or diplopia. No history of amaurosis fugax. EARS: Patient is hard of hearing bilaterally. There is no history of vertigo. No history of recurrent ear infections. NOSE: No history of nosebleeds. No history of nasal polyps. MOUTH: No history of altered taste sensation. No ulcers in the mouth. No bleeding from the gums. THROAT: No history of odynophagia or dysphagia. No history of recurrent sore throats. SKIN: The patient has venostasis dermatitis in the lower extremities and superficial ulcerations on both lower extremities. These are being treated by Dr. Selwyn Wiggins and the patient states she has chronic leg edema and the ulcers have been there for a long time. LUNGS: History of COPD present. History of asthma present. The patient recently quit smoking. The last time she smoked was 06/07/2016. She has cough with congestion and production of clear sputum but denies hemoptysis. There is no wheezing. The patient reports no history of obstructive sleep apnea but I doubt it. She has no history of pulmonary embolism. No history of pleuritic chest pain. CARDIOVASCULAR: No prior history of NJ. History of intermittent chest pressure, and the patient's EKG and cardiac enzymes have been negative in spite of the hemoglobin being 6.8. Hence, major coronary artery disease is unlikely although the patient is scheduled for a stress test at [facility] on July 19, but, I think the patient should have her GI bleed and colorectal/pulmonary metastases ruled out or ruled in prior to this. She has history of hypertension. No history of palpitations or cardiac arrhythmia. No history of syncope. History of chronic leg edema as mentioned earlier. The patient has no PND. She has orthopnea. ENDOCRINE: No history of polydipsia or polyuria. No history of heat or cold intolerance. No history of thyroid disease. No history of excessive sweating. METABOLIC: The patient has morbid obesity but no history of hyperlipidemia. GASTROINTESTINAL: History of GI bleed present. History of chronic rectal bleed as mentioned early. No history of fatty food intolerance. No history of cirrhosis. No history of hepatitis. No history of abdominal pain. GYNECOLOGICAL: No history of vaginal bleeding. History of total hysterectomy in the past. CENTRAL NERVOUS SYSTEM: No history of TIA or CVA. No history of gait imbalance. No history of headaches, migraines, or seizures. PSYCHIATRIC: Denies any history of anxiety or depression or suicidal ideation. HEMATOLOGIC: The patient does have anemia but no history of bleeding diathesis or clotting disorders. MEDICATIONS: 1. Tylenol 650 mg p.o. q. 4 hours p.r.n. 2. Glutose 40% gel, 15 gm p.o. and 30 gm p.o. p.r.n. hypoglycemia. 3. She is also hypoglycemic precautions with dextrose 50% 25 gm IV and 12.5 gm IV p.r.n. 4. She is on Ferumoxytol 510 IV x1. 5. She is on Glucagon 1 mg IM p.r.n. hypoglycemia. 6. She did receive magnesium 1 gm in D5W times one dose. 7. She did get normal saline 500 mL bolus and also normal saline at 250 mL continuous. 8. She also had two units blood transfusion. 9. She is on Accu-Chek's before meals and at bedtime with sliding scale insulin coverage. 10. She is ipratropium albuterol 3 mL nebulizer treatment q. 6 hours p.r.n. 11. She is Lansoprazole 30 mg p.o. b.i.d.. 12. She is on Zofran 4 mg IV q. 4 hours p.r.n.. 13. She is on potassium chloride 20 mEq p.o. times one. ALLERGIES: The patient is allergic to: 1. CEPHALEXIN. 2. CIPROFLOXACIN. 3. ERYTHROMYCIN BASE. 4. PENICILLINS. PHYSICAL EXAMINATION: VITAL SIGNS: The patient is morbidly obese, very uncooperative, tries to go to sleep when I would talk to her and gets irritated and does not give answers appropriately. She has as low grade temperature of 99.4 degrees Fahrenheit, pulse is 77 beats per minute, blood pressure 193/47, respirations 16 per minute. O2 sat is 100% on room air. HEENT: Head is atraumatic, normocephalic. EYES: Pupils are equal, round, regular, reactive to light and accommodation. Extraocular movements are normal. There is conjunctival pallor. There is no scleral icterus. EARS: Tympanic membranes are intact. External auditory canals are clear. NOSE: There is no deviated nasal septum. There is no inflammation of the nasal mucous membranes. There is no nasal polyps. MOUTH: Mucous membranes of the mouth are moist. Tongue is moist. There are no ulcers. There is no bleeding from the gums. THROAT: There is no redness of the oropharynx. There are no exudates in the throat. SKIN: As mentioned earlier, there is venostasis dermatitis on both lower extremities with 2+ edema and chronic superficial ulcerations of the skin. There is no petechiae or ecchymosis. There are no psoriatic lesions. NECK: Supple. There is no JVD. Carotids are equal. There is no bruit. There is no goiter. There is no lymphadenopathy. Trachea is central. LUNGS: Show a few dry crackles on both bases with hard breath sounds but no fine rales or CHF. There is diminished air entry with prolonged expiration and upon auscultation, there is hyperresonance. HEART: S1 and S2 are heard. There is no S3 gallop. There is no S4 gallop. There is a systolic murmur at left sternal border at the apex. There is mild mitral regurgitation. There is no rub. ABDOMEN: Soft, obese, nontender. There is no hepatosplenomegaly. Bowel sounds are well heard. EXTREMITIES: Femorals are very deep, diminished. There is no femoral bruit. Leg pulses are difficult to palpate. There is bilateral pitting edema, 1 to 2+ as mentioned earlier with superficial ulcerations of the legs and also chronic venostasis dermatitis. There is no calf tenderness. There is no cyanosis or clubbing. CENTRAL NERVOUS SYSTEM: The patient is conscious but very drowsy and sleepy with no focal deficit. PSYCHIATRIC: The patient does seem to be slightly agitated as she wants to go to sleep. Unable to assess her judgement and insight. Her affect is flat. MUSCULOSKELETAL: There is no acute swelling or redness of the joints. DIAGNOSTIC TEST RESULTS: The patient's chest CT shows multiple randomly distributed bilateral pulmonary nodules, the largest in the right lower lobe measuring 2 cm which suggests pulmonary metastatic disease. No pulmonary emboli. Pelvis ultrasound, as mentioned earlier, shows a 6.9 cm left pelvic mass. Her chest CTA shows no pulmonary emboli, no evidence for heart failure, and multiple randomly distributed bilateral pulmonary nodules, the largest on the right lower lobe measure 2 cm, to suggest pulmonary metastatic disease, no pulmonary emboli. The patient's chest x-ray shows no evidence of CHF, there is cardiomegaly, there is no dense consolidation worrisome for pneumonia, multiple nodules are suspected at both lung bases. There is no evidence of congestive heart failure. The patient's EKG shows sinus rhythm with right bundle branch block pattern. The patient's magnesium yesterday was 1.3 and this has been replaced. The patient's sodium is 130.2, potassium 3.4, chloride is 107, CO2 is 24, BUN is 12, creatinine 0.8. GFR is greater than 60. Her calcium is 7.7. The patient's cardiac enzymes have been negative x3. Her CPK and CK MB have been negative so far. The patient's hemoglobin on admission was 6.8 and hematocrit of 22. After two blood transfusions, the patient's hemoglobin is 7.6 with hematocrit of 23.9. The patient's white count was 9.900. The patient's platelet count is 405,000. The patient's stool occult blood done on 06/29/16 was negative but it was positive on 06/30/2016. The patient's C. diff toxin is negative. IMPRESSION: 1. Anemia, most likely secondary to intermittent chronic low GI bleed status post transfusion. The patient will get two more units today. She did get two units yesterday. A GI consult has been ordered. The patient was supposed to get an EKG and colonoscopy as an outpatient some time ago but she missed the appointment. 2. COPD. The patient seems to have chronic bronchitis at present. She does not seem have any acute exacerbation of COPD. The plan is to continue nebulizer treatment. 3. Chest pressure, intermittent. Doubt cardiac. Not related to exertion and the patient's cardiac enzymes have been negative x3 and the EKG just shows right bundle branch block pattern, especially with the patient's hemoglobin of 6.8 without any increase of cardiac biomarkers, and EKG without any evidence of ischemia, makes me suspect that the patient does not have any major coronary artery disease but the patient is for a stress test at [facility] on July 19 but, as mentioned earlier, would likely have a GI workup done and make sure that the patient does have colorectal cancer with lung mets prior to the patient being subjected to a stress test. 4. Cardiomyopathy. Mild reduced LV ejection fraction from 2013. The patient seems to be well compensated. 5. Benign essential hypertension. Seems to be well controlled, in fact, her blood pressure is low. 6. Diabetes mellitus type 2 noninsulin dependent with unspecified complications. 7. History of congestive heart failure. At present the patient seems to be compensated. There is no evidence of congestive heart failure this admission in spite of her hemoglobin being low. 8. Chronic bilateral leg edema with venostasis dermatitis and also superficial ulceration of both lower extremities. 9. Multiple lung nodules with pelvic mass. Suspect colorectal cancer with pulmonary mets. 10. Pelvic mass, possible colorectal cancer. GI workup will be done by GI consult. The patient will have a colonoscopy and an EGD. 11. Occult positive stool. Most likely cause of the patient's anemia. 12. Shortness of breath. Most likely secondary to anemia and COPD. The patient is receiving blood transfusions and also the patient is getting nebulizer treatments. 13. History of asthma. 14. Morbid obesity. 15. Multiple cardiac risk factors such as age, hypertension, diabetes mellitus, smoking, but, as mentioned earlier, there is no evidence of NJ or any increase in her cardiac biomarkers and the EKG showing no ischemia, suspect the patient does not have any major coronary artery disease but needs further testing later. 16. Noncompliance with medication. RECOMMENDATIONS: As mentioned earlier, continue current medications. Will get GI to do a GI workup with endoscopy and possible biopsy of the pelvic mass. Continue nebulizer treatments. Watch her for congestive heart failure. I would like to repeat an echocardiogram on the morning of Saturday since tomorrow is a holiday. TIME SPENT: Note 45 minutes spent on this patient including trying to coax the patient into giving a history and also review the patient's records from both internal control consultant, Dr. Goodwin and the attending physician's notes. The patient's medications were reviewed. Note more than 50% of the time was spent on direct patient care. Also discussed the management plan with other physicians on the case. The case was of moderate complexity. Will follow with you. As mentioned earlier, will get an echocardiogram on Saturday. DICTATING PHYSICIAN: MARIANO PAEZ M.D. [id number] PHY#: [id number] ID: [id number] JOB#: [id number] ACCT: [id number] cc:MARIANO PAEZ M.D. >
[2016-06-30 22:27] LABS: ABSOLUTE EOSINOPHILS # (AUTO) 0.1 10^3/uL (0.0-0.6); ABSOLUTE LYMPHOCYTES (AUTO) 1.7 10^3/uL (0.5-4.7); ABSOLUTE MONOCYTES (AUTO) 0.9 10^3/uL (0.1-1.4); ABSOLUTE NEUT (AUTO) 7.2 10^3/uL (1.7-8.2); BASOPHILS % (AUTO) 0.3 % (0-2); HEMATOCRIT 26.4 % (36.0-47.0); HEMOGLOBIN 8.3 g/dL (12.0-15.5); HGB HCT DIFFERENCE -1.5; MEAN CORPUSCULAR HEMOGLOBIN 21.8 pg (27.0-33.4); MEAN CORPUSCULAR HGB CONC 31.4 g/dL (32.0-36.0); MEAN CORPUSCULAR VOLUME 69 fl (80-97); MONOCYTES % (AUTO) 9.4 % (3-13); RED BLOOD COUNT 3.81 10^6/uL (3.72-5.28); RED CELL DISTRIBUTION WIDTH 23.5 % (11.5-14.0); SEGMENTED NEUTROPHILS % (AUTO) 72.3 % (42-78)
[2016-07-01 05:19] LABS: ABSOLUTE EOSINOPHILS # (AUTO) 0.2 10^3/uL (0.0-0.6); ABSOLUTE LYMPHOCYTES (AUTO) 1.5 10^3/uL (0.5-4.7); ABSOLUTE MONOCYTES (AUTO) 0.9 10^3/uL (0.1-1.4); ABSOLUTE NEUT (AUTO) 6.8 10^3/uL (1.7-8.2); BASOPHILS % (AUTO) 0.4 % (0-2); EOSINOPHILS % (AUTO) 1.6 % (0-6); LYMPHOCYTES % (AUTO) 16.2 % (13-45); MEAN CORPUSCULAR HEMOGLOBIN 22.6 pg (27.0-33.4); MEAN CORPUSCULAR HGB CONC 32.3 g/dL (32.0-36.0); MEAN CORPUSCULAR VOLUME 70 fl (80-97); MONOCYTES % (AUTO) 9.8 % (3-13); RED BLOOD COUNT 4.01 10^6/uL (3.72-5.28); RED CELL DISTRIBUTION WIDTH 23.6 % (11.5-14.0); WHITE BLOOD COUNT 9.4 10^3/uL (4.0-10.5)
[2016-07-01] MEDS: LANSOPRAZOLE 30 MG TAB.RAP.DR PO SCH ×2 (05:30→17:28)
[2016-07-01 05:46] LABS: ANION GAP 10 (5-19); BLOOD UREA NITROGEN 13 mg/dL (7-20); CALCIUM 7.7 mg/dL (8.4-10.2); CARBON DIOXIDE 25 mmol/L (22-30); CHLORIDE 106 mmol/L (98-107); CREATININE RESULT 0.96 mg/dL (0.52-1.25); GLUCOSE 103 mg/dL (75-110); POTASSIUM 3.5 mmol/L (3.6-5.0); SODIUM 140.6 mmol/L (137-145)
--- NOTE | 2016-07-01 09:50 | PDOC PROGRESS REPORT ---
Subjective Progress Note for:: 07/01/16 Subjective:: No acute events overnight, she is hungry for breakfast this morning Physical Exam Vital Signs: Temp Pulse Resp BP Pulse Ox 99.0 F 78 18 117/53 L 98 07/01/16 08:00 07/01/16 08:00 07/01/16 08:00 07/01/16 08:00 07/01/16 08:00 Intake & Output 06/30/16 07/01/16 07/02/16 06:59 06:59 06:59 Intake Total 945 2585 Balance 945 2585 Weight 138.4 kg 141.5 kg General appearance: PRESENT: no acute distress, well-developed, well-nourished Head exam: PRESENT: atraumatic, normocephalic Eye exam: PRESENT: conjunctiva pink, EOMI, PERRLA. ABSENT: scleral icterus Ear exam: PRESENT: normal external ear exam Mouth exam: PRESENT: moist, tongue midline Neck exam: ABSENT: carotid bruit, JVD, lymphadenopathy, thyromegaly Respiratory exam: PRESENT: clear to auscultation shireen. ABSENT: rales, rhonchi, wheezes Cardiovascular exam: PRESENT: RRR. ABSENT: diastolic murmur, rubs, systolic murmur Pulses: PRESENT: normal dorsalis pedis pul Vascular exam: PRESENT: normal capillary refill GI/Abdominal exam: PRESENT: normal bowel sounds, soft. ABSENT: distended, guarding, mass, organolmegaly, rebound, tenderness Rectal exam: PRESENT: deferred Extremities exam: PRESENT: full ROM. ABSENT: calf tenderness, clubbing, pedal edema Neurological exam: PRESENT: alert, awake, oriented to person, oriented to place , oriented to time, oriented to situation, CN II-XII grossly intact. ABSENT: motor sensory deficit Psychiatric exam: PRESENT: appropriate affect, normal mood. ABSENT: homicidal ideation, suicidal ideation Skin exam: PRESENT: dry, intact, warm. ABSENT: cyanosis, rash Results Laboratory Results: 07/01/16 04:24 07/01/16 04:24 06/30/16 06/30/16 07/01/16 10:30 22:00 04:24 WBC 10.0 9.4 RBC 3.81 4.01 Hgb 8.3 L 9.0 L Hct 26.4 L 28.0 L MCV 69 L 70 L MCH 21.8 L 22.6 L MCHC 31.4 L 32.3 RDW 23.5 H 23.6 H Plt Count 447 446 Seg Neutrophils % 72.3 72.0 Lymphocytes % 17.0 16.2 Monocytes % 9.4 9.8 Eosinophils % 1.0 1.6 Basophils % 0.3 0.4 Absolute Neutrophils 7.2 6.8 Absolute Lymphocytes 1.7 1.5 Absolute Monocytes 0.9 0.9 Absolute Eosinophils 0.1 0.2 Absolute Basophils 0.0 0.0 Sodium Potassium Chloride Carbon Dioxide Anion Gap BUN Creatinine Est GFR ( Amer) Est GFR (Non-Af Amer) Glucose Calcium Stool Occult Blood POSITIVE 07/01/16 04:24 WBC RBC Hgb Hct MCV MCH MCHC RDW Plt Count Seg Neutrophils % Lymphocytes % Monocytes % Eosinophils % Basophils % Absolute Neutrophils Absolute Lymphocytes Absolute Monocytes Absolute Eosinophils Absolute Basophils Sodium 140.6 Potassium 3.5 L Chloride 106 Carbon Dioxide 25 Anion Gap 10 BUN 13 Creatinine 0.96 Est GFR ( Amer) > 60 Est GFR (Non-Af Amer) 58 L Glucose 103 Calcium 7.7 L Stool Occult Blood 06/29/16 06/29/16 06/29/16 17:20 17:20 22:50 Creatine Kinase 22 L 24 L CK-MB (CK-2) < 0.22 Troponin I < 0.012 06/29/16 06/30/16 06/30/16 22:50 04:39 04:39 Creatine Kinase 25 L CK-MB (CK-2) < 0.22 < 0.22 Troponin I < 0.012 < 0.012 Impressions: Chest CT 06/29/16 00:00 IMPRESSION: Multiple randomly distributed bilateral pulmonary nodules, the largest is in the right lower lobe measuring 2 cm, this suggests pulmonary metastatic disease. NO PULMONARY EMBOLI. Pelvis Ultrasound 06/29/16 00:00 IMPRESSION: 6.9 cm left pelvic mass. Chest X-Ray 06/29/16 12:25 IMPRESSION: Findings worrisome for multiple pulmonary nodules. Chest CT recommended for followup Chest/Abdomen CTA 06/29/16 15:46 IMPRESSION: Multiple randomly distributed bilateral pulmonary nodules, the largest is in the right lower lobe measuring 2 cm, this suggests pulmonary metastatic disease. NO PULMONARY EMBOLI. Abdomen/Pelvis CT 06/29/16 16:58 IMPRESSION: Diffuse inflammatory changes are present with a rim enhancing 6.8 cm heterogeneous mass with contact with the bladder base as well as the sigmoid colon. There is also diffuse thickening in the rectum and distal sigmoid colon with 5 cm heterogeneously an enhancing nodular mass in the right lateral wall with diffuse wall thickening throughout this region. Moderate left-sided hydronephrosis and hydroureter due to the pelvic inflammatory mass. Multiple bilateral pulmonary nodules. Assessment & Plan - Diagnosis (1) Pelvic mass Is this a current diagnosis for this admission?: YesPlan: Appears to be related to a colonic mass, probably a primary colorectal mass with exophytic lesion, continues to have some hematochezia. I discussed her case with Dr. Zavaleta of Gen. surgery, he will plan on colonoscopy on Saturday. We have laced bowel prep today, nothing by mouth after midnight, clear liquids. Today had a long discussion with patient, also discussed her case with her granddaughter Raj seems to be her main decision maker also. In total we spent greater than 45 minutes in discussion. (2) Multiple lung nodules Is this a current diagnosis for this admission?: YesPlan: Likely related to a primary colon cancer but some sort of metastatic spread is likely. If we can't get at the diagnosis with colonoscopy, we may have to do a lung biopsy. (3) Anemia requiring transfusions Is this a current diagnosis for this admission?: YesPlan: Hemoglobin is better at 9, continue to monitor, hold on transfusion for right now. - Time Time Spent with patient: 35 or more minutes Critical Time spent with patient: 35 or more minutes - Inpatient Certification Based on my medical assessment, after consideration of the patient's comorbidities, presenting symptoms, or acuity I expect that the services needed warrant INPATIENT care.: Yes I certify that my determination is in accordance with my understanding of Medicare's requirements for reasonable and necessary INPATIENT services [42 CFR 412.3e].: Yes Medical Necessity: Need For IV Fluids, Need For Continuous Telemetry Monitoring , Need for Surgery
[2016-07-01] MEDS ORDERED: PEG 3350/NA SULF,BICARB,CL/KCL 4000 ML PO ONE (14:00)
--- NOTE | 2016-07-01 14:48 | PROGRESS NOTE E ---
Progress Note NAME: ISH VANN : 1945 AGE: 71Y DATE: 07/01/2016 ROOM: 321 SUBJECTIVE: Note that the patient still states that she is tired but is more awake and more cooperative and cheerful. She apologized for not being able to give me a good history as she states she was sleepy. She denies any chest pain or discomfort. She has no PND and still has some degree of orthopnea. She confirmed the findings on the review of symptoms and past medical history. She vehemently claims that she has no history of myocardial infarction or angina, and there is no cardiac arrhythmia and there is no syncope. The patient's pedal edema is slightly less and is about 1+ to 2-. She still has some chronic venostasis dermatitis in the legs. There is some superficial ulcerations in the leg which are being dressed. She denies any TIA or CVA symptoms, either in the past or now at present. She states that she is not sure of sleep apnea but with the patient being morbidly obese and having symptoms of sleep apnea, she most likely needs a sleep study. She states that she has had some vaginal bleeding today but no rectal bleeding. OBJECTIVE: GENERAL: The patient is moderately obese. VITAL SIGNS: She is afebrile with a temperature of 98.9 degrees Fahrenheit, pulse of 79 beats per minute, blood pressure 105/50, respirations 20 per minute. O2 sat is 98% on room air. HEENT: Head is atraumatic, normocephalic. EYES: Pupils are equal, round, regular, reactive to light and accommodation. There is conjunctival pallor. There is no scleral icterus. Extraocular movements are normal. ENT: Negative. NECK: Supple. There is no JVD. Carotids are equal. There is no bruit. There is no lymphadenopathy. There is no goiter. LUNGS: Show a few dry crackles at the bases without any rales of CHF. There is diminished air entry with prolonged expiration and upon auscultation. There is no rhonchi or wheezing. There is hyperresonance on percussion. HEART: S1 and S2 are heard. There is no S3 gallop. There is no S4 gallop. There is a systolic murmur at left sternal border and the apex. There is mild mitral regurgitation. There is no rub. ABDOMEN: Soft, nontender. There is no hepatosplenomegaly. Abdomen is obese. Bowel sounds are well heard. EXTREMITIES: Femorals are very deep, diminished. There is no femoral bruit. Leg pulses are difficult to palpate. There is bilateral edema, 1+ to 2- as mentioned earlier with superficial ulcerations of the legs and also chronic venostasis dermatitis. There is no calf tenderness. There is no cyanosis or clubbing. Capillary refill is normal. CENTRAL NERVOUS SYSTEM: The patient is conscious, awake, alert and oriented x3 with no focal deficit. PSYCHIATRIC: The patient at present judgment and insight seem to be intact. Her affect is normal. INTAKE/OUTPUT: Inaccurate. DIAGNOSTIC TEST RESULTS: So far she has received 4 units of packed RBCs. The patient's white count is 9400, hemoglobin has come up to 9, hematocrit is 28, and platelet count is 146,000. The patient's sodium is 140.6, potassium 3.5, chloride 106, CO2 25, BUN 13, creatinine 0.96, GFR is mildly reduced at 58 mL, glucose 103, calcium is 7.7. IMPRESSION: 1. Anemia, most likely secondary to intermittent chronic lower GI bleed, status post 4 packed RBC transfusions. A GI consult has been ordered. The patient is for colonoscopy in the a.m. Subsequently she will have an EGD. 2. Vaginal bleeding, questionable etiology. 3. COPD. The patient seems to have chronic bronchitis at present. She does not seem have any acute exacerbation of COPD and there is no acute bronchitis. The plan is to continue nebulizer treatment. 4. Chest pressure, intermittent has resolved since the hemoglobin has come up. *------*. The patient's EKG does show right bundle branch block pattern without any ischemic changes. The patient's cardiac enzymes have been negative. As mentioned earlier, the patient is unlikely to have any major coronary artery disease. 5. Cardiomyopathy with mildly reduced LV ejection fraction from 2014. At present there is no evidence of congestive heart failure. Will recheck an echo in the a.m. 6. Benign essential hypertension. Blood pressure is well controlled, continue her current blood pressure medications. 7. Diabetes mellitus type 2 noninsulin dependent with unspecified complications. Note that the patient is on sliding scale insulin coverage. 8. Past history of congestive heart failure. At present it seems to be compensated. The patient in the past has been having [id number] systolic and diastolic heart failure. 9. Chronic bilateral leg edema with venostasis dermatitis and also superficial ulceration of both lower extremities. Ulcerations are being treated with topical ointments and dressing. 10. Multiple lung nodules with pelvic mass. Suspect colorectal cancer with pulmonary mets but with vaginal bleeding, need to be sure that there is no pelvic pathology eroding into the GI tract causing both the stool occult positive blood and also vaginal bleeding. 11. Occult positive stool. Most likely cause of the patient's anemia. 12. Shortness of breath. Much improved, most likely secondary to anemia and COPD. The patient has improved with receiving blood transfusions and also the patient is getting nebulizer treatments. 13. History of asthma. At present, no acute asthmatic attack. 14. Morbid obesity. 15. Multiple cardiac risk factors such as age, hypertension, diabetes mellitus, and recent smoking, but, as mentioned earlier, there is no evidence of TX or any increase in her cardiac biomarkers and the EKG showing no ischemia. I suspect the patient does not have any major coronary artery disease but needs further testing later. 16. Noncompliance with medication. RECOMMENDATIONS: As mentioned earlier, continue current medications. The patient is for colonoscopy tomorrow. Will watch the patient for congestive heart failure. Will repeat an echocardiogram tomorrow morning. Note: My recommendation would be that if a colorectal carcinoma is found and the patient needs surgery, to go ahead with the surgery and watch the patient carefully for any perioperative TX, arrhythmias or congestive heart failure and then send her to a tertiary care center for a cardiac catheterization. If the patient does have a stress test and if this is positive, I am not sure if anybody would put a stent in in view of the patient's GI bleed and the pelvic mass. This has been discussed in detail with the patient. TIME SPENT: Note 35 minutes spent on this patient with more than 50% of the time spent on direct patient care, reviewing the patient's medications. The patient's systolic blood pressure is 117, hence, would wait for the blood pressure to come up and later if her blood pressure comes up, later restart the patient on atenolol for cardiac protection if patient indeed needs to have surgery. Will reassess the blood pressure in the a.m. to start atenolol. Discussed the patient's case with the attending physicians and the oncologist. Discussed all this in detail with the patient. Will follow with you. Thanking you. DICTATING PHYSICIAN: MARIANO PAEZ M.D. [id number] PHY#: [id number] ID: [id number] JOB#: [id number] ACCT: [id number] cc: >
--- NOTE | 2016-07-01 16:59 | PDOC PROGRESS REPORT ---
Subjective Progress Note for:: 07/01/16 Subjective:: Patient was seen by the bedside. Last night he had vaginal bleeding and gynecology was consulted, he was also seen by oncology and cardiology. The primary site of the cancer is thought to be the colon Dr. Goodwin spoke to the surgeon and the plan is to have colonoscopy tomorrow Physical Exam Vital Signs: Temp Pulse Resp BP Pulse Ox 99.3 F 83 18 104/75 94 07/01/16 16:03 07/01/16 16:03 07/01/16 16:03 07/01/16 16:03 07/01/16 16:03 Intake & Output 06/30/16 07/01/16 07/02/16 06:59 06:59 06:59 Intake Total 945 2585 1280 Balance 945 2585 1280 Weight 138.4 kg 141.5 kg General appearance: PRESENT: no acute distress Eye exam: PRESENT: PERRLA Respiratory exam: PRESENT: clear to auscultation shireen Cardiovascular exam: PRESENT: +S1, +S2 Results Laboratory Results: 07/01/16 04:24 07/01/16 04:24 06/30/16 07/01/16 07/01/16 22:00 04:24 04:24 WBC 10.0 9.4 RBC 3.81 4.01 Hgb 8.3 L 9.0 L Hct 26.4 L 28.0 L MCV 69 L 70 L MCH 21.8 L 22.6 L MCHC 31.4 L 32.3 RDW 23.5 H 23.6 H Plt Count 447 446 Seg Neutrophils % 72.3 72.0 Lymphocytes % 17.0 16.2 Monocytes % 9.4 9.8 Eosinophils % 1.0 1.6 Basophils % 0.3 0.4 Absolute Neutrophils 7.2 6.8 Absolute Lymphocytes 1.7 1.5 Absolute Monocytes 0.9 0.9 Absolute Eosinophils 0.1 0.2 Absolute Basophils 0.0 0.0 Sodium 140.6 Potassium 3.5 L Chloride 106 Carbon Dioxide 25 Anion Gap 10 BUN 13 Creatinine 0.96 Est GFR ( Amer) > 60 Est GFR (Non-Af Amer) 58 L Glucose 103 Calcium 7.7 L 06/29/16 06/29/16 06/29/16 17:20 17:20 22:50 Creatine Kinase 22 L 24 L CK-MB (CK-2) < 0.22 Troponin I < 0.012 06/29/16 06/30/16 06/30/16 22:50 04:39 04:39 Creatine Kinase 25 L CK-MB (CK-2) < 0.22 < 0.22 Troponin I < 0.012 < 0.012 Impressions: Chest CT 06/29/16 00:00 IMPRESSION: Multiple randomly distributed bilateral pulmonary nodules, the largest is in the right lower lobe measuring 2 cm, this suggests pulmonary metastatic disease. NO PULMONARY EMBOLI. Pelvis Ultrasound 06/29/16 00:00 IMPRESSION: 6.9 cm left pelvic mass. Chest X-Ray 06/29/16 12:25 IMPRESSION: Findings worrisome for multiple pulmonary nodules. Chest CT recommended for followup Chest/Abdomen CTA 06/29/16 15:46 IMPRESSION: Multiple randomly distributed bilateral pulmonary nodules, the largest is in the right lower lobe measuring 2 cm, this suggests pulmonary metastatic disease. NO PULMONARY EMBOLI. Abdomen/Pelvis CT 06/29/16 16:58 IMPRESSION: Diffuse inflammatory changes are present with a rim enhancing 6.8 cm heterogeneous mass with contact with the bladder base as well as the sigmoid colon. There is also diffuse thickening in the rectum and distal sigmoid colon with 5 cm heterogeneously an enhancing nodular mass in the right lateral wall with diffuse wall thickening throughout this region. Moderate left-sided hydronephrosis and hydroureter due to the pelvic inflammatory mass. Multiple bilateral pulmonary nodules. Assessment & Plan - Diagnosis (1) Severe anemia Is this a current diagnosis for this admission?: Yes (2) Pelvic mass Is this a current diagnosis for this admission?: Yes (3) COPD (chronic obstructive pulmonary disease) Qualifiers: Emphysema type: centrilobular Is this a current diagnosis for this admission?: Yes
[2016-07-01] MEDS: POTASSI CL 20 MEQ/NS 1L 1000 ML IV PRN (21:48)
--- NOTE | 2016-07-01 22:21 | PDOC CONSULTATION ---
Consultation Consult Date: 07/01/16 Attending physician:: JESSIKA ESPINOZA Consult reason:: Rectal mass History of Present Illness Admission Date/PCP: 06/29/16 16:49 Sloane Tommy History of Present Illness: 71-year-old female with what seems to be a year-long history of rectal bleeding , she is been passing clots per rectum, was seen as an outpatient by gastroenterology and recommended to have EGD and colonoscopy, but unfortunately transportation issues have prevented her from making her appointments. She presented with a hemoglobin of 7, ferritin of 30, saturation low, consistent with blood loss anemia. Dr. Castillo admitted her, we recommended workup with CT of the chest abdomen pelvis, this indicated a large left pelvic mass, seems to be contiguous with rectum, sigmoid area, there also were bilateral pulmonary nodules, the largest was in the right lower lobe 2 cm. I discussed her case with radiology, they believe this is probably a colorectal cancer, and recommended colonoscopy for further evaluation. Of note, however, the right lower lobe nodule is accessible by CT-guided biopsy. She has had a total hysterectomy done in 1979 so the [employer] source is unlikely. Surgeons addendum: Patient states she had a colonoscopy release, reportedly normal. She is status post SOBIA/BSO in the early [address]s per Dr. pina for benign disease. She is been having irregular bowel movements constipation mixed with diarrhea with blood for over 6 months possibly a year she has also had pelvic pain of unexplained etiology. She denies family history of colorectal carcinoma. Now getting a bowel prep for planned colonoscopy in the morning. Past Medical History Cardiac Medical History: Reports: Congestive Heart Failure, Hypertension Pulmonary Medical History: Reports: Asthma, Chronic Obstructive Pulmonary Disease (COPD), Pneumonia Denies: Tuberculosis Endocrine Medical History: Reports: Diabetes Mellitus Type 2 GI Medical History: Reports: Gastroesophageal Reflux Disease Psychiatric Medical History: Denies: Depression Hematology: Reports: Anemia Past Surgical History Past Surgical History: Reports: Appendectomy, Hysterectomy - Total Social History Smoking Status: Former Smoker Cigarettes Packs Per Day: 1 Number of Years Smokin Last Time Smoked: 06/07/16 Frequency of Alcohol Use: Social Hx Recreational Drug Use: No Hx Prescription Drug Abuse: No - Advance Directive Resuscitation Status: Full Code Family History Family History: Reviewed & Not Pertinent Parental Family History Reviewed: Yes Children Family History Reviewed: Yes Sibling(s) Family History Reviewed.: Yes Medication/Allergy Home Medications: Aspirin [Aspirin 81 mg Chewable Tablet] 81 mg PO DAILY 06/29/16 Atenolol [Tenormin 50 mg Tablet] 50 mg PO BID 06/29/16 Ferrous Sulfate [Iron] 325 mg PO BID 06/29/16 Lisinopril [Prinivil 2.5 mg Tablet] 2.5 mg PO DAILY 06/29/16 Metformin HCl [Metformin HCl ER] 1,000 mg PO QPM 06/29/16 Metformin HCl [Metformin HCl ER] 500 mg PO QAM 06/29/16 Omeprazole 20 mg PO DAILY 06/29/16 Allergies/Adverse Reactions: cephalexin monohydrate [From Keflex] Allergy (Verified 06/29/16 12:15) ciprofloxacin [From Cipro] Allergy (Verified 06/29/16 12:15) ciprofloxacin HCl [From Cipro] Allergy (Verified 06/29/16 12:15) erythromycin base [Erythromycin Base] Allergy (Verified 06/29/16 12:15) Penicillins Allergy (Verified 06/29/16 12:15) Physical Exam Vital Signs: Temp Pulse Resp BP Pulse Ox 99.3 F 85 18 104/75 94 07/01/16 16:03 07/01/16 19:00 07/01/16 16:03 07/01/16 16:03 07/01/16 16:03 Intake & Output 06/30/16 07/01/16 07/02/16 06:59 06:59 06:59 Intake Total 945 2585 2050 Output Total 200 Balance 945 2585 1850 Weight 138.4 kg 141.5 kg General appearance: PRESENT: mild distress Eye exam: PRESENT: EOMI Mouth exam: PRESENT: moist Respiratory exam: PRESENT: clear to auscultation shireen, decreased breath sounds GI/Abdominal exam: PRESENT: other - Diffusely tender in the pelvic region. Extremely difficult to sort out abdominal department anatomy due to patient's morbid obesity Results Laboratory Results: 07/01/16 04:24 07/01/16 04:24 06/30/16 07/01/16 07/01/16 22:00 04:24 04:24 WBC 10.0 9.4 RBC 3.81 4.01 Hgb 8.3 L 9.0 L Hct 26.4 L 28.0 L MCV 69 L 70 L MCH 21.8 L 22.6 L MCHC 31.4 L 32.3 RDW 23.5 H 23.6 H Plt Count 447 446 Seg Neutrophils % 72.3 72.0 Lymphocytes % 17.0 16.2 Monocytes % 9.4 9.8 Eosinophils % 1.0 1.6 Basophils % 0.3 0.4 Absolute Neutrophils 7.2 6.8 Absolute Lymphocytes 1.7 1.5 Absolute Monocytes 0.9 0.9 Absolute Eosinophils 0.1 0.2 Absolute Basophils 0.0 0.0 Sodium 140.6 Potassium 3.5 L Chloride 106 Carbon Dioxide 25 Anion Gap 10 BUN 13 Creatinine 0.96 Est GFR ( Amer) > 60 Est GFR (Non-Af Amer) 58 L Glucose 103 Calcium 7.7 L 06/29/16 06/29/16 06/29/16 17:20 17:20 22:50 Creatine Kinase 22 L 24 L CK-MB (CK-2) < 0.22 Troponin I < 0.012 06/29/16 06/30/16 06/30/16 22:50 04:39 04:39 Creatine Kinase 25 L CK-MB (CK-2) < 0.22 < 0.22 Troponin I < 0.012 < 0.012 Impressions: Chest CT 06/29/16 00:00 IMPRESSION: Multiple randomly distributed bilateral pulmonary nodules, the largest is in the right lower lobe measuring 2 cm, this suggests pulmonary metastatic disease. NO PULMONARY EMBOLI. Pelvis Ultrasound 06/29/16 00:00 IMPRESSION: 6.9 cm left pelvic mass. Chest X-Ray 06/29/16 12:25 IMPRESSION: Findings worrisome for multiple pulmonary nodules. Chest CT recommended for followup Chest/Abdomen CTA 06/29/16 15:46 IMPRESSION: Multiple randomly distributed bilateral pulmonary nodules, the largest is in the right lower lobe measuring 2 cm, this suggests pulmonary metastatic disease. NO PULMONARY EMBOLI. Abdomen/Pelvis CT 06/29/16 16:58 IMPRESSION: Diffuse inflammatory changes are present with a rim enhancing 6.8 cm heterogeneous mass with contact with the bladder base as well as the sigmoid colon. There is also diffuse thickening in the rectum and distal sigmoid colon with 5 cm heterogeneously an enhancing nodular mass in the right lateral wall with diffuse wall thickening throughout this region. Moderate left-sided hydronephrosis and hydroureter due to the pelvic inflammatory mass. Multiple bilateral pulmonary nodules. Assessment & Plan - Diagnosis (1) Pelvic mass Is this a current diagnosis for this admission?: YesPlan: 1. The impression is a nondescript pelvic mass abutting the rectum and bladder with distortion of the bladder wall, and rectal wall. The exact etiology, and organ origination of this process is somewhat elusive. The CT scan is limited due to the absence of oral contrast. Nonetheless the process does not appear to be causing a colonic obstruction. 2. We'll set the patient up for flexible colonoscopy tomorrow. She's getting a bowel prep currently. I explained the patient this was a diagnostic not therapeutic procedure. He and her granddaughter who is serving as the healthcare power of therapeutic support staff expresses her understanding group C.
[2016-07-02] MEDS: ONDANSETRON HCL INJ/PF 4 MG/2 ML SDV IV PRN ×2 (02:58→21:35)
[2016-07-02] MEDS: LANSOPRAZOLE 30 MG TAB.RAP.DR PO SCH ×2 (05:04→18:00)
[2016-07-02] MEDS: POTASSI CL 20 MEQ/NS 1L 1000 ML IV PRN ×2 (05:16→18:15)
[2016-07-02 06:08] LABS: ABSOLUTE EOSINOPHILS # (AUTO) 0.1 10^3/uL (0.0-0.6); ABSOLUTE LYMPHOCYTES (AUTO) 1.1 10^3/uL (0.5-4.7); ABSOLUTE MONOCYTES (AUTO) 0.8 10^3/uL (0.1-1.4); BASOPHILS % (AUTO) 0.2 % (0-2); EOSINOPHILS % (AUTO) 0.5 % (0-6); HEMATOCRIT 26.9 % (36.0-47.0); HEMOGLOBIN 8.6 g/dL (12.0-15.5); HGB HCT DIFFERENCE -1.1; LYMPHOCYTES % (AUTO) 11.2 % (13-45); MEAN CORPUSCULAR HEMOGLOBIN 22.2 pg (27.0-33.4); MEAN CORPUSCULAR HGB CONC 32.1 g/dL (32.0-36.0); MEAN CORPUSCULAR VOLUME 69 fl (80-97); MONOCYTES % (AUTO) 7.7 % (3-13); RED BLOOD COUNT 3.89 10^6/uL (3.72-5.28); RED CELL DISTRIBUTION WIDTH 24.3 % (11.5-14.0); SEGMENTED NEUTROPHILS % (AUTO) 80.4 % (42-78)
[2016-07-02 06:27] LABS: ANION GAP 11 (5-19); BLOOD UREA NITROGEN 11 mg/dL (7-20); CALCIUM 7.5 mg/dL (8.4-10.2); CARBON DIOXIDE 23 mmol/L (22-30); CHLORIDE 107 mmol/L (98-107); CREATININE RESULT 0.74 mg/dL (0.52-1.25); GLUCOSE 100 mg/dL (75-110); POTASSIUM 3.2 mmol/L (3.6-5.0)
[2016-07-02 06:38] LABS: ANISOCYTOSIS 3+; HYPOCHROMASIA 1+; MICROCYTOSIS 2+; POIKILOCYTOSIS 1+; POLYCHROMASIA SLIGHT
[2016-07-02 06:39] LABS: OVALOCYTES SLIGHT; TEAR DROP CELLS SLIGHT
--- NOTE | 2016-07-02 08:52 | PDOC PROGRESS REPORT ---
Subjective Progress Note for:: 07/02/16 Subjective:: No acute events overnight, patient was prepped appropriately Physical Exam Vital Signs: Temp Pulse Resp BP Pulse Ox 98.3 F 71 16 100/48 L 96 07/02/16 07:44 07/02/16 07:44 07/02/16 07:44 07/02/16 07:44 07/02/16 07:44 Intake & Output 07/01/16 07/02/16 07/03/16 06:59 06:59 06:59 Intake Total 2585 3560 Output Total 450 Balance 2585 3110 Weight 141.5 kg 139.5 kg General appearance: PRESENT: no acute distress, well-developed, well-nourished Head exam: PRESENT: atraumatic, normocephalic Eye exam: PRESENT: conjunctiva pink, EOMI, PERRLA. ABSENT: scleral icterus Ear exam: PRESENT: normal external ear exam Mouth exam: PRESENT: moist, tongue midline Neck exam: ABSENT: carotid bruit, JVD, lymphadenopathy, thyromegaly Respiratory exam: PRESENT: clear to auscultation shireen. ABSENT: rales, rhonchi, wheezes Cardiovascular exam: PRESENT: RRR. ABSENT: diastolic murmur, rubs, systolic murmur Pulses: PRESENT: normal dorsalis pedis pul Vascular exam: PRESENT: normal capillary refill GI/Abdominal exam: PRESENT: normal bowel sounds, soft. ABSENT: distended, guarding, mass, organolmegaly, rebound, tenderness Rectal exam: PRESENT: deferred Extremities exam: PRESENT: full ROM. ABSENT: calf tenderness, clubbing, pedal edema Neurological exam: PRESENT: alert, awake, oriented to person, oriented to place , oriented to time, oriented to situation, CN II-XII grossly intact. ABSENT: motor sensory deficit Psychiatric exam: PRESENT: appropriate affect, normal mood. ABSENT: homicidal ideation, suicidal ideation Skin exam: PRESENT: dry, intact, warm. ABSENT: cyanosis, rash Results Laboratory Results: 07/02/16 05:02 07/02/16 05:02 06/29/16 07/02/16 07/02/16 17:20 05:02 05:02 WBC 10.0 RBC 3.89 Hgb 8.6 L Hct 26.9 L MCV 69 L MCH 22.2 L MCHC 32.1 RDW 24.3 H Plt Count 457 H Seg Neutrophils % 80.4 H Lymphocytes % 11.2 L Monocytes % 7.7 Eosinophils % 0.5 Basophils % 0.2 Absolute Neutrophils 8.0 Absolute Lymphocytes 1.1 Absolute Monocytes 0.8 Absolute Eosinophils 0.1 Absolute Basophils 0.0 Sodium 141.0 Potassium 3.2 L Chloride 107 Carbon Dioxide 23 Anion Gap 11 BUN 11 Creatinine 0.74 Est GFR ( Amer) > 60 Est GFR (Non-Af Amer) > 60 Glucose 100 Calcium 7.5 L Transferrin 126 L 06/29/16 06/29/16 06/29/16 17:20 17:20 22:50 Creatine Kinase 22 L 24 L CK-MB (CK-2) < 0.22 Troponin I < 0.012 06/29/16 06/30/16 06/30/16 22:50 04:39 04:39 Creatine Kinase 25 L CK-MB (CK-2) < 0.22 < 0.22 Troponin I < 0.012 < 0.012 Impressions: Chest CT 06/29/16 00:00 IMPRESSION: Multiple randomly distributed bilateral pulmonary nodules, the largest is in the right lower lobe measuring 2 cm, this suggests pulmonary metastatic disease. NO PULMONARY EMBOLI. Pelvis Ultrasound 06/29/16 00:00 IMPRESSION: 6.9 cm left pelvic mass. Chest X-Ray 06/29/16 12:25 IMPRESSION: Findings worrisome for multiple pulmonary nodules. Chest CT recommended for followup Chest/Abdomen CTA 06/29/16 15:46 IMPRESSION: Multiple randomly distributed bilateral pulmonary nodules, the largest is in the right lower lobe measuring 2 cm, this suggests pulmonary metastatic disease. NO PULMONARY EMBOLI. Abdomen/Pelvis CT 06/29/16 16:58 IMPRESSION: Diffuse inflammatory changes are present with a rim enhancing 6.8 cm heterogeneous mass with contact with the bladder base as well as the sigmoid colon. There is also diffuse thickening in the rectum and distal sigmoid colon with 5 cm heterogeneously an enhancing nodular mass in the right lateral wall with diffuse wall thickening throughout this region. Moderate left-sided hydronephrosis and hydroureter due to the pelvic inflammatory mass. Multiple bilateral pulmonary nodules. Assessment & Plan - Diagnosis (1) Pelvic mass Is this a current diagnosis for this admission?: YesPlan: Still concerning for primary colon cancer, although other cancers could be possible. Awaiting colonoscopy. (2) Multiple lung nodules Is this a current diagnosis for this admission?: YesPlan: As noted previously, lung biopsy would be possible if needed, but hold on that awaiting colonoscopy. (3) Anemia requiring transfusions Is this a current diagnosis for this admission?: YesPlan: Hemoglobin generally stable, may need further transfusion prior to discharge. - Time Time Spent with patient: 35 or more minutes Critical Time spent with patient: 35 or more minutes - Inpatient Certification Based on my medical assessment, after consideration of the patient's comorbidities, presenting symptoms, or acuity I expect that the services needed warrant INPATIENT care.: Yes I certify that my determination is in accordance with my understanding of Medicare's requirements for reasonable and necessary INPATIENT services [42 CFR 412.3e].: Yes Medical Necessity: Failure to Improve With Outpatient Therapy, Need for Surgery , Risk of Complication if Not Cared For in Hospital
[2016-07-02] MEDS ORDERED: FENTANYL CITRATE INJ/PF 100 MCG/2 ML AMPUL ONE (11:32)
[2016-07-02] MEDS ORDERED: MIDAZOLAM 2 MG/2 ML INJ ONE (11:33)
[2016-07-02] MEDS ORDERED: PROPOFOL INJ 200 MG/20 ML VIAL IV ONE (11:33)
[2016-07-02] MEDS ORDERED: FENTANYL CITRATE INJ/PF 100 MCG/2 ML AMPUL IV PRN ×3 (12:46)
[2016-07-02] MEDS ORDERED: DIPHENHYDRAMINE HCL 50 MG/ML VIAL IV PRN (12:46)
[2016-07-02] MEDS ORDERED: MEPERIDINE HCL/PF INJ 25 MG/1 ML DISP.SYRIN IV PRN (12:46)
[2016-07-02] MEDS ORDERED: OXYCODONE-ACETAMINOPHEN 5-325 MG TABLET PO PRN ×2 (12:46)
[2016-07-02] MEDS ORDERED: MORPHINE SULFATE 10 MG/ML INJ IV PRN (12:46)
[2016-07-02] MEDS ORDERED: PROMETHAZINE HCL INJ 25 MG/1 ML VIAL IV PRN ×2 (12:46)
--- NOTE | 2016-07-02 12:48 | Operative Report ---
Operative Report DATE OF SURGERY: 07/02/16 PREOPERATIVE DIAGNOSIS: 1. Pelvic mass. 2. Rectal bleeding POSTOPERATIVE DIAGNOSIS: Same with. 1. Upper to mid extensive rectal carcinoma. 2. Malignant involvement of vaginal cuff OPERATION: 1. Flexible adult limited colonoscopy to 50 cm. 2. Multiple cold forceps biopsies of rectal mass SURGEON: JESSICA LUO ANESTHESIA: LMAC TISSUE REMOVED OR ALTERED: The tissue biopsies COMPLICATIONS: 9 ESTIMATED BLOOD LOSS: minimal INTRAOPERATIVE FINDINGS: See below PROCEDURE: After informed consent was obtained, the patient taken the operating room where she was placed in supine position. Level of LMAC anesthesia was induced. The patient place in supine position legs in stirrups , deep lithotomy. Patient underwent perineal exam under anesthesia, with biopsies of vaginal cuff mass by Dr. Dawn. That part of the procedure was dictated separately. Once that portion of the procedure was complete, we left the patient in the supine, stirrups positioned. A rectal exam was performed. I could feel a mass at the tip of my index finger consistent with elevated approximately 8 cm from the anal verge. The anal opening itself appeared grossly normal. The flexible adult colonoscope was then used to evaluate the anal rectal canal. The scope was advanced through the anal canal where we immediately encountered a fungating, circumferential rectal pathologic process consistent with malignancy. This area was suctioned out and found to extend proximally about 10 cm, so this was a elongated segments of rectal cancer from the upper to mid rectum. I was able to advance the colonoscope past the tumor into the sigmoid colon and up the descending colon to approximately 50 cm from anal verge. Colonoscopy was aborted due to incomplete bowel prep. We withdrew the scope back through the area of interest, irrigated it carefully and obtained multiple cold forceps biopsies. Bleeding was minimal. Photodocumentation was performed. We felt the operation was complete. Scope was withdrawn to the patient's anus, having tolerated the procedure well.
--- NOTE | 2016-07-02 13:11 | Operative Report ---
Operative Report DATE OF SURGERY: 07/02/16 PREOPERATIVE DIAGNOSIS: Pelvic Mass POSTOPERATIVE DIAGNOSIS: KRISS, suspect Colorectal primary OPERATION: Examination Under Anesthesia, Biopsy of Vaginal Cuff SURGEON: ARLEN BEACH ANESTHESIA: Moderate Sedation TISSUE REMOVED OR ALTERED: viopsy of vaginal cuff PROCEDURE: Preoperative Diagnosis: Pelvic Mass of Unknown Etiology Postoperative Diagnosis: KRISS. Concern that vaginal cuff is not intact and vagina now communicating with peritoneum Procedure: EUA, biopsy of vaginal cuff mass, Dr. Zavaleta to perform colonoscopy after my procedure Anesthesia: [Moderate sedation] Anesthesia: Rema Hendrix CRNA EBL: [Less than 5 mL] IVF: [250 mL] UOP: [Not measured] Specimens: Biopsy of vaginal cuff mass Complications: None Findings: [On bimanual exam no palpable cuff and upper vagina appears to be open to peritoneum where the vaginal cuff should be. On bimanual exam copious amounts of yellow fluid drained from vagina. Additionally yellow to whitish mucous like tissue on glove after exam. On exam with retractors fungating lesion with mucous and soft tissue extending from the site where vaginal cuff should be.] Indications: [71-year-old with approximately 6 months of rectal bleeding who presented with pelvic pain and abdominal pain through the ER on 06/29/2016. She underwent workup which included a pelvic ultrasound and abdomen/pelvis CT scan. The patient has a history of a SOBIA/BSO with appendectomy approximately 25 years ago for fibroids. She has not had a pelvic exam or Pap smear or any other evaluation in some time. The patient is a poor historian but granddaughter was available for discussion with Dr. Sotomayor at initial consultation. Ultrasound and CT scan reviewed by myself with evidence of large pelvic mass appearing to communicate with the bladder and the colon/rectum. Ultrasound from 06/29/2016 reported uterus however this appears to actually be measuring the pelvic mass not uterus. Confirmation of this was performed with comparison to CT scan and consultation with additional radiologist this morning. Due to rectal bleeding and also reported vaginal bleeding with mucus blood-tinged discharge from vagina and examination under anesthesia was needed in addition to her colonoscopy. Colonoscopy planned to be performed by Dr. Zavaleta and due to patient's body habitus and other comorbid conditions examination under anesthesia and evaluation of vaginal bleeding needed to be performed during the time of colonoscopy. Diagnosis of pelvic mass with need for evaluation and possible procedures to include examination under anesthesia vaginal vulvar biopsies or any other indicated procedures were reviewed with the patient and the patient desired to proceed with planned procedure in conjunction with the colonoscopy. Risks benefits and alternatives were reviewed with the patient and the patient desired to proceed] Procedure: The patient was taken to the Operating Room where moderate sedation was obtained without difficulty. She was prepped and draped in the normal sterile fashion in the dorsal supine lithotomy position. Exam under anesthesia was performed and noted above. Britzkey and Right angle retractors were placed in the vagina. Ring forceps used to sample the fungating lesion or the vaginal cuff should be. All instruments were removed from the patient's cervix and vagina. Silver nitrate was applied to the tenaculum site for hemostasis. Sponge lap needle and instrument counts are correct 2. The patient tolerated the procedure well and was taken to the recovery area awake and in stable condition after completion of secondary procedure by Dr. Zavaleta.
--- NOTE | 2016-07-02 14:02 | PDOC PROGRESS REPORT ---
Subjective Progress Note for:: 07/02/16 Subjective:: Phone Consult with Dr. Serrato [facility]AD [facility]RO[facility]ELOPER [facility] at [facility] Physical Exam - Physical Exam Vital Signs: Temp Pulse Resp BP Pulse Ox 98.3 F 71 16 100/46 L 96 07/02/16 10:51 07/02/16 10:51 07/02/16 10:51 07/02/16 10:51 07/02/16 10:51 Intake & Output 07/01/16 07/02/16 07/03/16 06:59 06:59 06:59 Intake Total 2585 3560 Output Total 450 Balance 2585 3110 Weight 141.5 kg 139.5 kg Result Laboratory Results: 07/02/16 05:02 07/02/16 05:02 06/29/16 07/02/16 07/02/16 17:20 05:02 05:02 WBC 10.0 RBC 3.89 Hgb 8.6 L Hct 26.9 L MCV 69 L MCH 22.2 L MCHC 32.1 RDW 24.3 H Plt Count 457 H Seg Neutrophils % 80.4 H Lymphocytes % 11.2 L Monocytes % 7.7 Eosinophils % 0.5 Basophils % 0.2 Absolute Neutrophils 8.0 Absolute Lymphocytes 1.1 Absolute Monocytes 0.8 Absolute Eosinophils 0.1 Absolute Basophils 0.0 Sodium 141.0 Potassium 3.2 L Chloride 107 Carbon Dioxide 23 Anion Gap 11 BUN 11 Creatinine 0.74 Est GFR ( Amer) > 60 Est GFR (Non-Af Amer) > 60 Glucose 100 Calcium 7.5 L Transferrin 126 L 06/29/16 06/29/16 06/29/16 17:20 17:20 22:50 Creatine Kinase 22 L 24 L CK-MB (CK-2) < 0.22 Troponin I < 0.012 06/29/16 06/30/16 06/30/16 22:50 04:39 04:39 Creatine Kinase 25 L CK-MB (CK-2) < 0.22 < 0.22 Troponin I < 0.012 < 0.012 Impressions: Chest CT 06/29/16 00:00 IMPRESSION: Multiple randomly distributed bilateral pulmonary nodules, the largest is in the right lower lobe measuring 2 cm, this suggests pulmonary metastatic disease. NO PULMONARY EMBOLI. Pelvis Ultrasound 06/29/16 00:00 IMPRESSION: 6.9 cm left pelvic mass. Chest X-Ray 06/29/16 12:25 IMPRESSION: Findings worrisome for multiple pulmonary nodules. Chest CT recommended for followup Chest/Abdomen CTA 06/29/16 15:46 IMPRESSION: Multiple randomly distributed bilateral pulmonary nodules, the largest is in the right lower lobe measuring 2 cm, this suggests pulmonary metastatic disease. NO PULMONARY EMBOLI. Abdomen/Pelvis CT 06/29/16 16:58 IMPRESSION: Diffuse inflammatory changes are present with a rim enhancing 6.8 cm heterogeneous mass with contact with the bladder base as well as the sigmoid colon. There is also diffuse thickening in the rectum and distal sigmoid colon with 5 cm heterogeneously an enhancing nodular mass in the right lateral wall with diffuse wall thickening throughout this region. Moderate left-sided hydronephrosis and hydroureter due to the pelvic inflammatory mass. Multiple bilateral pulmonary nodules. Status: Imported from PACS Assessment & Plan - Diagnosis (1) Pelvic mass Is this a current diagnosis for this admission?: YesPlan: Reviewed patient presentation and CT/US with Dr. Serrato [employer]RO[employer]ELOPER [employer]. Reviewed with her also concerns that on BME vaginal cuff does not appear intact and actually palpates approx 3-4cm dilated. Reviewed concerns that vagina appears to either be communicating with pelvic mass or with abdominal cavity. Dr. Serrato agrees that this patient should be transferred for management with [employer]RO[employer]ELOPER [employer] consult due to possible need for surgical management etc if there truly is a communication with abdominal cavity from the vagina. Dr. Serrato agreed to consult on patient for evaluation and management options. Spoke with Dr. Goodwin and Dr. Zavaleta re: recommendations. S/w with Dr. Lepe (covering for Dr. Castillo) re: recommendations for transfer for consultation and possible management at [facility]. - Time Time Spent with patient: Less than 15 minutes Medications reviewed and adjusted accordingly: Yes Anticipated discharge: Other - recommendationfor transfer - Inpatient Certification Medical Necessity: Significant Comorbidiites Make Outpatient Treatment Too Risky , Need Close Monitoring Due to Risk of Patient Decompensation, Need for Pain Control, Risk of Diagnosis Which Will Require Inpatient Eval/Care/Monitoring
--- NOTE | 2016-07-02 23:03 | PROGRESS NOTE E ---
Progress Note NAME: ISH VANN : 1945 AGE: 71Y DATE: 07/02/2016 ROOM: 321 SUBJECTIVE: Note that the patient was seen late in the evening after she came back from a colonoscopy. She denies any chest pain or discomfort. The leg edema is the same. There are no palpitations. There is no chest pain or discomfort. The patient has no PND but does have some orthopnea. There is no cough or sputum production. At rest, the patient is not short of breath. She states she feels much stronger. The preliminary finding on the colonoscopy is that there is a pelvic mass and there is a suspected colorectal cancer with possibly a fistula into the vagina, but the full operative draft is awaited. OBJECTIVE: GENERAL: The patient is morbidly obese. VITAL SIGNS: She is afebrile with a temperature of 98.1 degrees Fahrenheit, pulse is 77 beats per minute, blood pressure 111/58, respirations 16 per minute. O2 sat is 98% on room air. HEENT: Head is atraumatic, normocephalic. EYES: Pupils are equal, round, regular, reactive to light and accommodation. There is conjunctival pallor. There is no scleral icterus. Extraocular movements are normal. ENT: Negative. NECK: Supple. There is no JVD. Carotids are equal. There is no bruit. There is no lymphadenopathy. There is no goiter. LUNGS: Show prolonged expiration without any rhonchi, rales or wheezes. There is hyperresonance on percussion. HEART: S1 and S2 are heard. There is no S3 gallop. There is no S4 gallop. There is a systolic murmur in the left sternal border and the apex. There is mild mitral regurgitation present. There is no rub. ABDOMEN: Soft, nontender. There is no hepatosplenomegaly. Abdomen is obese. Bowel sounds are well heard. EXTREMITIES: Femorals are very deep and diminished. There is no femoral bruit. Leg pulses are difficult to palpate. There is bilateral 1+ edema with superficial ulcerations of the legs and also chronic venostasis dermatitis. There is no calf tenderness. There is no cyanosis or clubbing. Capillary refill is normal. CENTRAL NERVOUS SYSTEM: The patient is conscious, awake, alert and oriented x3 with no focal deficit. PSYCHIATRIC: The patient at present her judgment and insight are intact. Her affect is normal. DIAGNOSTIC TEST RESULTS: The patient's white count is 10,000, hemoglobin is 8.6, hematocrit is 26.9, and platelet count is *------*. The patient's sodium is 141, potassium 3.2, chloride 107, CO2 23, BUN 11, creatinine 0.74, GFR is greater than 60, glucose is 100, and her calcium is 7.5. IMPRESSION: 1. Anemia, most likely secondary to intermittent chronic lower GI bleed. The patient is still slightly anemic in spite of blood transfusion. 2. 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 3. Pelvic mass. 4. COPD. 5. Suspected colorectal cancer. 6. History of chest pressure, intermittent. Patient with no acute EKG changes except for right bundle branch block pattern which seems to be chronic and negative cardiac enzymes. The symptoms have not recurred. 7. Cardiomyopathy with mildly reduced LV ejection fraction from 2014. At present there is no evidence of congestive heart failure. The patient has not yet had an echocardiogram. 8. Benign essential hypertension. Blood pressure is very well controlled on the continue medications. 9. Diabetes mellitus type 2 noninsulin dependent but in the hospital the patient is on sliding scale insulin. Continue the current treatment. 10 Past history of congestive heart failure. At present seems to be compensated. The patient probably has chronic diastolic heart failure along with systolic heart failure, but at present both of these seem to be compensated. 11. Chronic bilateral leg edema with venostasis dermatitis and also superficial ulceration of both legs, being treated topically. 12. Multiple lung nodules with pelvic mass. Suspect colorectal cancer with lung mets. 13. Occult positive stool. Most likely cause of the patient's anemia. 14. Shortness of breath. Much improved, secondary to COPD. 15. History of asthma. At present, no acute asthmatic attack. 16. Morbid obesity. 17. Multiple cardiac risk factors such as age, hypertension, diabetes mellitus, and recent smoking, but, as mentioned earlier, there is no evidence of NV or any increase in her cardiac biomarkers and the EKG showing no ischemia. 18. Noncompliance with medication. 19. Symptoms suggestive of sleep apnea, as the patient states she has snoring and also has vivid nightmares and when she wakes up she feels very weak, but she also states that she intermittently wakes up at night. The patient later may need a sleep study. RECOMMENDATIONS: 20. Continue current medications. The patient will be transferred to [facility] for possible addressing of the pelvic mass and colorectal cancer, possibly with surgical treatment. Subsequent to that when the patient becomes stable after her suspected colorectal cancer and pelvic mass as needed managed and the patient is stable from that, then would recommend that the patient have a Cardiolite stress test. At present I would not subject the patient to cardiac catheterization or a stress test. This has been discussed in detail with the patient. The patient most likely is going to be transferred to [facility] for further management of her suspected colorectal cancer and pelvic mass. Continue the patient on atenolol for cardiac protection. Later would recommend that the patient have a small dose of RAPHAEL inhibitor or ARB due to the patient's having diabetes mellitus for renal protection. TIME SPENT: Note that 30 minutes spent on this patient with more than 50% of the time spent on direct patient care and also discussions with other care providers on the case. Will sign off the case. Thanking you. DICTATING PHYSICIAN: MARIANO PAEZ M.D. [id number] PHY#: [id number] ID: [id number] JOB#: [id number] ACCT: [id number] cc: >
[2016-07-03] MEDS: LANSOPRAZOLE 30 MG TAB.RAP.DR PO SCH (06:28)
--- NOTE | 2016-07-03 08:12 | PDOC TRANSFER SUMMARY ---
General Admission Date/PCP: 06/29/16 16:49 Sloane Casasnt Resuscitation Status: Full Code - Transfer Diagnosis (1) Rectal cancer Is this a current diagnosis for this admission?: YesDiagnosis Summary: Most likely most likely a rectal cancer with metastatic disease with pending biopsy (2) Pelvic mass Is this a current diagnosis for this admission?: YesDiagnosis Summary: RHEUMATOLOGIST evaluations done and possible rectal mass with the involvement of the vagina need a further evaluation of the RHEUMATOLOGIST oncology (3) Anemia requiring transfusions Is this a current diagnosis for this admission?: YesDiagnosis Summary: Status post blood transfusion (4) COPD (chronic obstructive pulmonary disease) Is this a current diagnosis for this admission?: YesDiagnosis Summary: Stable (5) Chest pressure Is this a current diagnosis for this admission?: YesDiagnosis Summary: Negative cardiac workup per cardiology (6) Benign essential HTN Is this a current diagnosis for this admission?: YesDiagnosis Summary: Stable (7) Type II diabetes mellitus Is this a current diagnosis for this admission?: YesDiagnosis Summary: Continues the current medication (8) Congestive heart failure Is this a current diagnosis for this admission?: YesDiagnosis Summary: Stable (9) Venous dermatitis Is this a current diagnosis for this admission?: YesDiagnosis Summary: Chronic venous insufficiency (10) Multiple lung nodules Is this a current diagnosis for this admission?: YesDiagnosis Summary: Probably metastatic disease (11) Shortness of breath Is this a current diagnosis for this admission?: YesDiagnosis Summary: ALT result - Transfer Medications Home Medications: Aspirin [Aspirin 81 mg Chewable Tablet] 81 mg PO DAILY 06/29/16 Atenolol [Tenormin 50 mg Tablet] 50 mg PO BID 06/29/16 Ferrous Sulfate [Iron] 325 mg PO BID 06/29/16 Lisinopril [Prinivil 2.5 mg Tablet] 2.5 mg PO DAILY 06/29/16 Metformin HCl [Metformin HCl ER] 1,000 mg PO QPM 06/29/16 Metformin HCl [Metformin HCl ER] 500 mg PO QAM 06/29/16 Omeprazole 20 mg PO DAILY 06/29/16 Transfer Medications: Current Medications Acetaminophen (Tylenol 325 Mg Tablet) 650 mg PO Q4HP PRN PRN Reason: FEVER Stop: 07/29/16 16:48 Last Admin: 06/30/16 18:20 Dose: 650 mg Albuterol/Ipratropium (Duoneb 3 Ml Ampul) 3 ml NEB RTQ6HP PRN PRN Reason: SHORTNESS OF BREATH Stop: 07/29/16 16:48 Dextrose (Dextrose Inj 50% Syringe (25 Gm/50 Ml)) 25 gm IV PRN PRN PRN Reason: Protocol Stop: 07/29/16 16:53 Dextrose (Dextrose Inj 50% Syringe (25 Gm/50 Ml)) 12.5 gm IV PRN PRN; Protocol PRN Reason: FOR BG 50-69 IN ALERT PATIENT Stop: 07/29/16 16:53 Glucagon (Glucagen Inj 1 Mg Vial) 1 mg IM PRN PRN; Protocol PRN Reason: Evaluate for BG < 70 Stop: 07/29/16 16:53 Glucose (Glutose 40% Gel 15 Gm Tube) 15 gm PO PRN PRN; Protocol PRN Reason: FOR BG 50-69 IN ALERT PATIENT Stop: 07/29/16 16:53 Glucose (Glutose 40% Gel 15 Gm Tube) 30 gm PO PRN PRN; Protocol PRN Reason: FOR BG < 50 IN ALERT PATIENT Stop: 07/29/16 16:53 Potassium Chloride/Sodium Chloride (Nacl 0.9% 1000 Ml/Kcl 20 Meq Premix Bag) 1, 000 mls @ 150 mls/hr IV CONTINUOUS PRN PRN Reason: THIS MED IS NOT "PRN" Stop: 07/31/16 21:30 Last Admin: 07/02/16 18:15 Dose: 1,000 ml Insulin Human Lispro (Humalog Insulin 100 Unit/1 Ml 3 Ml Vial) 0 - 12 unit SUBCUT ACHSP PRN PRN Reason: Protocol Stop: 07/29/16 16:53 Lansoprazole (Prevacid 30 Mg Odt Tablet) 30 mg PO BID@0600,1700 DA Stop: 07/29/16 16:59 Last Admin: 07/03/16 06:28 Dose: 30 mg Ondansetron HCl (Zofran Inj/Pf 4 Mg/2 Ml Sdv) 4 mg IV Q4HP PRN PRN Reason: FOR NAUSEA/VOMITING Stop: 07/29/16 16:48 Last Admin: 07/02/16 21:35 Dose: 4 mg - Allergies Allergies/Adverse Reactions: cephalexin monohydrate [From Keflex] Allergy (Verified 02/03/17 12:15) ciprofloxacin [From Cipro] Allergy (Verified 06/29/16 12:15) erythromycin base [Erythromycin Base] Allergy (Verified 06/29/16 12:15) Penicillins Allergy (Verified 06/29/16 12:15) Hospital Course Hospital Course: This is a 71-year-old female with a history of the chronic smoker h/o type II diabetes mellitus COPD and hypertension morbid obesity and noncompliance with the follow-up patient's came to the emergency department with a complaint of shortness of the breath and patient hemoglobin was 6.[address] abdomen and pelvis and CT chest which sews the patient have a pelvic mass and the oncology consult was placed and also surgery consult was placed and RHEUMATOLOGIST consult was placed and found the possible rectal cancer with involvement of the vagina history of hysterectomy in 1981 patient. Patient started the rectal bleeding and on and off and the bleeding from the vagina to and the patient already see the GI last month and patient's also scheduled for colonoscopy but patient's did not go patient also scheduled for the stress test but patient's did not go for that also. Patient's came 2 days with the above complaints patient was extensively evaluated in the hospital and the patient at this point to was transported personally center. Discussed with the patient's granddaughter regarding the patient's current conditions and PLAN AN ELDERLY ABOUT TO GO INTO THE [facility]. Physical Exam Vital Signs: Temp Pulse Resp BP Pulse Ox 97.6 F 70 22 H 117/73 95 07/03/16 04:08 07/03/16 07:00 07/03/16 04:08 07/03/16 04:08 07/03/16 04:08 Intake & Output 07/02/16 07/03/16 07/04/16 06:59 06:59 06:59 Intake Total 3560 2600 Output Total 450 0 Balance 3110 2600 Weight 139.5 kg 140 kg General appearance: PRESENT: no acute distress, well-developed, well-nourished Head exam: PRESENT: atraumatic, normocephalic Eye exam: PRESENT: conjunctiva pink, EOMI, PERRLA. ABSENT: scleral icterus Ear exam: PRESENT: normal external ear exam Mouth exam: PRESENT: moist, tongue midline Neck exam: ABSENT: carotid bruit, JVD, lymphadenopathy, thyromegaly Respiratory exam: PRESENT: clear to auscultation shireen. ABSENT: rales, rhonchi, wheezes Cardiovascular exam: PRESENT: RRR. ABSENT: diastolic murmur, rubs, systolic murmur Pulses: PRESENT: normal dorsalis pedis pul Vascular exam: PRESENT: normal capillary refill GI/Abdominal exam: PRESENT: normal bowel sounds, soft. ABSENT: distended, guarding, mass, organolmegaly, rebound, tenderness Rectal exam: PRESENT: deferred Extremities exam: PRESENT: full ROM. ABSENT: calf tenderness, clubbing, pedal edema Neurological exam: PRESENT: alert, awake, oriented to person, oriented to place , oriented to time, oriented to situation, CN II-XII grossly intact. ABSENT: motor sensory deficit Psychiatric exam: PRESENT: appropriate affect, normal mood. ABSENT: homicidal ideation, suicidal ideation Skin exam: PRESENT: dry, intact, warm. ABSENT: cyanosis, rash Results Laboratory Results: 07/02/16 05:02 07/02/16 05:02 06/29/16 17:20 Transferrin 126 L 06/29/16 06/29/16 06/29/16 17:20 17:20 22:50 Creatine Kinase 22 L 24 L CK-MB (CK-2) < 0.22 Troponin I < 0.012 06/29/16 06/30/16 06/30/16 22:50 04:39 04:39 Creatine Kinase 25 L CK-MB (CK-2) < 0.22 < 0.22 Troponin I < 0.012 < 0.012 Impressions: Chest CT 06/29/16 00:00 IMPRESSION: Multiple randomly distributed bilateral pulmonary nodules, the largest is in the right lower lobe measuring 2 cm, this suggests pulmonary metastatic disease. NO PULMONARY EMBOLI. Pelvis Ultrasound 06/29/16 00:00 IMPRESSION: 6.9 cm left pelvic mass. Chest X-Ray 06/29/16 12:25 IMPRESSION: Findings worrisome for multiple pulmonary nodules. Chest CT recommended for followup Chest/Abdomen CTA 06/29/16 15:46 IMPRESSION: Multiple randomly distributed bilateral pulmonary nodules, the largest is in the right lower lobe measuring 2 cm, this suggests pulmonary metastatic disease. NO PULMONARY EMBOLI. Abdomen/Pelvis CT 06/29/16 16:58 IMPRESSION: Diffuse inflammatory changes are present with a rim enhancing 6.8 cm heterogeneous mass with contact with the bladder base as well as the sigmoid colon. There is also diffuse thickening in the rectum and distal sigmoid colon with 5 cm heterogeneously an enhancing nodular mass in the right lateral wall with diffuse wall thickening throughout this region. Moderate left-sided hydronephrosis and hydroureter due to the pelvic inflammatory mass. Multiple bilateral pulmonary nodules. Plan Time Spent: Greater than 30 Minutes - Transfer the patient's to the [facility] when the bed available
[2016-07-03 08:35] LABS: ABSOLUTE EOSINOPHILS # (AUTO) 0.1 10^3/uL (0.0-0.6); ABSOLUTE MONOCYTES (AUTO) 0.5 10^3/uL (0.1-1.4); ABSOLUTE NEUT (AUTO) 5.3 10^3/uL (1.7-8.2); BASOPHILS % (AUTO) 0.4 % (0-2); EOSINOPHILS % (AUTO) 1.3 % (0-6); HEMATOCRIT 25.5 % (36.0-47.0); HEMOGLOBIN 8.2 g/dL (12.0-15.5); HGB HCT DIFFERENCE -0.9; LYMPHOCYTES % (AUTO) 14.6 % (13-45); MEAN CORPUSCULAR HEMOGLOBIN 22.5 pg (27.0-33.4); MEAN CORPUSCULAR HGB CONC 32.3 g/dL (32.0-36.0); MEAN CORPUSCULAR VOLUME 70 fl (80-97); MONOCYTES % (AUTO) 7.6 % (3-13); RED BLOOD COUNT 3.67 10^6/uL (3.72-5.28); RED CELL DISTRIBUTION WIDTH 24.8 % (11.5-14.0); SEGMENTED NEUTROPHILS % (AUTO) 76.1 % (42-78)
[2016-07-03 08:51] LABS: ALANINE AMINOTRANSFERASE 25 U/L (9-52); ALBUMIN 2.3 g/dL (3.5-5.0); ALKALINE PHOSPHATASE 94 U/L (38-126); ANION GAP 12 (5-19); ASPARTATE AMINO TRANSFERASE 17 U/L (14-36); BILIRUBIN,TOTAL 0.4 mg/dL (0.2-1.3); BLOOD UREA NITROGEN 10 mg/dL (7-20); CARBON DIOXIDE 24 mmol/L (22-30); CHLORIDE 106 mmol/L (98-107); CREATININE RESULT 0.78 mg/dL (0.52-1.25); GLUCOSE 96 mg/dL (75-110); POTASSIUM 3.1 mmol/L (3.6-5.0); SODIUM 141.8 mmol/L (137-145)
[2016-07-03 08:59] LABS: ANISOCYTOSIS 3+; HYPOCHROMASIA 1+; MICROCYTOSIS 2+; POIKILOCYTOSIS SLIGHT; POLYCHROMASIA SLIGHT
[2016-07-03 09:00] LABS: OVALOCYTES SLIGHT
--- NOTE | 2016-07-03 09:03 | PDOC PROGRESS REPORT ---
Subjective Progress Note for:: 07/03/16 Subjective:: No acute events overnight Physical Exam Vital Signs: Temp Pulse Resp BP Pulse Ox 97.9 F 69 18 113/59 L 98 07/03/16 08:02 07/03/16 08:02 07/03/16 08:02 07/03/16 08:02 07/03/16 08:02 Intake & Output 07/02/16 07/03/16 07/04/16 06:59 06:59 06:59 Intake Total 3560 2950 Output Total 450 0 Balance 3110 2950 Weight 139.5 kg 140 kg General appearance: PRESENT: no acute distress, well-developed, well-nourished Head exam: PRESENT: atraumatic, normocephalic Eye exam: PRESENT: conjunctiva pink, EOMI, PERRLA. ABSENT: scleral icterus Ear exam: PRESENT: normal external ear exam Mouth exam: PRESENT: moist, tongue midline Neck exam: ABSENT: carotid bruit, JVD, lymphadenopathy, thyromegaly Respiratory exam: PRESENT: clear to auscultation shireen. ABSENT: rales, rhonchi, wheezes Cardiovascular exam: PRESENT: RRR. ABSENT: diastolic murmur, rubs, systolic murmur Pulses: PRESENT: normal dorsalis pedis pul Vascular exam: PRESENT: normal capillary refill GI/Abdominal exam: PRESENT: normal bowel sounds, soft. ABSENT: distended, guarding, mass, organolmegaly, rebound, tenderness Rectal exam: PRESENT: deferred Extremities exam: PRESENT: full ROM. ABSENT: calf tenderness, clubbing, pedal edema Neurological exam: PRESENT: alert, awake, oriented to person, oriented to place , oriented to time, oriented to situation, CN II-XII grossly intact. ABSENT: motor sensory deficit Psychiatric exam: PRESENT: appropriate affect, normal mood. ABSENT: homicidal ideation, suicidal ideation Skin exam: PRESENT: dry, intact, warm. ABSENT: cyanosis, rash Results Laboratory Results: 07/03/16 07:58 07/03/16 07:58 07/03/16 07/03/16 07:58 07:58 WBC 7.0 RBC 3.67 L Hgb 8.2 L Hct 25.5 L MCV 70 L MCH 22.5 L MCHC 32.3 RDW 24.8 H Plt Count 432 Seg Neutrophils % 76.1 Lymphocytes % 14.6 Monocytes % 7.6 Eosinophils % 1.3 Basophils % 0.4 Absolute Neutrophils 5.3 Absolute Lymphocytes 1.0 Absolute Monocytes 0.5 Absolute Eosinophils 0.1 Absolute Basophils 0.0 Sodium 141.8 Potassium 3.1 L Chloride 106 Carbon Dioxide 24 Anion Gap 12 BUN 10 Creatinine 0.78 Est GFR ( Amer) > 60 Est GFR (Non-Af Amer) > 60 Glucose 96 Calcium 8.0 L Total Bilirubin 0.4 AST 17 ALT 25 Alkaline Phosphatase 94 Total Protein 6.0 L Albumin 2.3 L 06/29/16 06/29/16 06/29/16 17:20 17:20 22:50 Creatine Kinase 22 L 24 L CK-MB (CK-2) < 0.22 Troponin I < 0.012 06/29/16 06/30/16 06/30/16 22:50 04:39 04:39 Creatine Kinase 25 L CK-MB (CK-2) < 0.22 < 0.22 Troponin I < 0.012 < 0.012 Impressions: Chest CT 06/29/16 00:00 IMPRESSION: Multiple randomly distributed bilateral pulmonary nodules, the largest is in the right lower lobe measuring 2 cm, this suggests pulmonary metastatic disease. NO PULMONARY EMBOLI. Pelvis Ultrasound 06/29/16 00:00 IMPRESSION: 6.9 cm left pelvic mass. Chest X-Ray 06/29/16 12:25 IMPRESSION: Findings worrisome for multiple pulmonary nodules. Chest CT recommended for followup Chest/Abdomen CTA 06/29/16 15:46 IMPRESSION: Multiple randomly distributed bilateral pulmonary nodules, the largest is in the right lower lobe measuring 2 cm, this suggests pulmonary metastatic disease. NO PULMONARY EMBOLI. Abdomen/Pelvis CT 06/29/16 16:58 IMPRESSION: Diffuse inflammatory changes are present with a rim enhancing 6.8 cm heterogeneous mass with contact with the bladder base as well as the sigmoid colon. There is also diffuse thickening in the rectum and distal sigmoid colon with 5 cm heterogeneously an enhancing nodular mass in the right lateral wall with diffuse wall thickening throughout this region. Moderate left-sided hydronephrosis and hydroureter due to the pelvic inflammatory mass. Multiple bilateral pulmonary nodules. Assessment & Plan - Diagnosis (1) Pelvic mass Is this a current diagnosis for this admission?: YesPlan: Status post colonoscopy, looks like a primary rectal cancer with spread to the vaginal vault/cervical os, we believe she would benefit from a diverting colostomy. I discussed her case with Dr. Thorpe at [place], he was concerned about her obesity about the possibility of whether she would tolerate that or whether that would be the best procedure for her. He will be getting the films and then making a decision. They had a long discussion with patient, today spent about 50 minutes in correlation of care in discussion with patient (2) Multiple lung nodules Is this a current diagnosis for this admission?: YesPlan: Likely metastatic spread from primary colorectal cancer (3) Anemia requiring transfusions Is this a current diagnosis for this admission?: YesPlan: Hemoglobin stable continue to monitor - Time Time Spent with patient: 35 or more minutes Critical Time spent with patient: 35 or more minutes [facility]ated [facility] Based on my medical assessment, after consideration of the patient's comorbidities, presenting symptoms, or acuity I expect that the services needed warrant INPATIENT care.: Yes I certify that my determination is in accordance with my understanding of Medicare's requirements for reasonable and necessary INPATIENT services [42 CFR 412.3e].: Yes Medical Necessity: Need for IV Antibiotics, Need for Surgery
--- NOTE | 2016-07-03 12:24 | PROGRESS NOTE E ---
Progress Note NAME: ISH VANN : 1945 AGE: 71Y DATE: 07/02/2016 ROOM: 321 SUBJECTIVE: Patient is doing fair. Denied any chest pain. No abdominal pain. on the bladder area. Patient scheduled for the colonoscopy and scheduled for the APPOINTMENT SCHEDULER consult. The patient on the weekend received blood transfusion. Patient seen by the oncologist . Patient otherwise denied any other symptoms. Patient's CT scan of the abdomen and pelvis showed some pelvic mass and the patient have pulmonary nodules. The patient is very noncompliant. OBJECTIVE: VITAL SIGNS: (dictation ends) ASSESSMENT: PLAN: DICTATING PHYSICIAN: CADY ARBOLEDA M.D. [id number] CHANELLE#: [id number]: [id number] JOB#: [id number] ACCT: [id number] cc: >
--- NOTE | 2016-07-03 12:34 | PDOC PROGRESS REPORT ---
Subjective Progress Note for:: 07/03/16 Subjective:: I spent proximally 1 hour contacting oncologic surgery and colorectal surgery colleagues in the region who may be willing to assist in the care of this complex patient given her multiple comorbidities. Dr. Alireza Manning in conjunction with Dr. Rahul Loaiza of the [facility] agreed to accept patient in transfer. I spoke with Dr. Goodwin and he is in agreement with this plan for transfer. Physical Exam Vital Signs: Temp Pulse Resp BP Pulse Ox 97.9 F 69 18 113/59 L 98 07/03/16 08:02 07/03/16 08:02 07/03/16 08:02 07/03/16 08:02 07/03/16 08:02 Intake & Output 07/02/16 07/03/16 07/04/16 06:59 06:59 06:59 Intake Total 3560 2950 Output Total 450 0 Balance 3110 2950 Weight 139.5 kg 140 kg Results Laboratory Results: 07/03/16 07:58 07/03/16 07:58 07/03/16 07/03/16 07:58 07:58 WBC 7.0 RBC 3.67 L Hgb 8.2 L Hct 25.5 L MCV 70 L MCH 22.5 L MCHC 32.3 RDW 24.8 H Plt Count 432 Seg Neutrophils % 76.1 Lymphocytes % 14.6 Monocytes % 7.6 Eosinophils % 1.3 Basophils % 0.4 Absolute Neutrophils 5.3 Absolute Lymphocytes 1.0 Absolute Monocytes 0.5 Absolute Eosinophils 0.1 Absolute Basophils 0.0 Sodium 141.8 Potassium 3.1 L Chloride 106 Carbon Dioxide 24 Anion Gap 12 BUN 10 Creatinine 0.78 Est GFR ( Amer) > 60 Est GFR (Non-Af Amer) > 60 Glucose 96 Calcium 8.0 L Total Bilirubin 0.4 AST 17 ALT 25 Alkaline Phosphatase 94 Total Protein 6.0 L Albumin 2.3 L 06/29/16 06/29/16 06/29/16 17:20 17:20 22:50 Creatine Kinase 22 L 24 L CK-MB (CK-2) < 0.22 Troponin I < 0.012 06/29/16 06/30/16 06/30/16 22:50 04:39 04:39 Creatine Kinase 25 L CK-MB (CK-2) < 0.22 < 0.22 Troponin I < 0.012 < 0.012 Impressions: Chest CT 06/29/16 00:00 IMPRESSION: Multiple randomly distributed bilateral pulmonary nodules, the largest is in the right lower lobe measuring 2 cm, this suggests pulmonary metastatic disease. NO PULMONARY EMBOLI. Pelvis Ultrasound 06/29/16 00:00 IMPRESSION: 6.9 cm left pelvic mass. Chest X-Ray 06/29/16 12:25 IMPRESSION: Findings worrisome for multiple pulmonary nodules. Chest CT recommended for followup Chest/Abdomen CTA 06/29/16 15:46 IMPRESSION: Multiple randomly distributed bilateral pulmonary nodules, the largest is in the right lower lobe measuring 2 cm, this suggests pulmonary metastatic disease. NO PULMONARY EMBOLI. Abdomen/Pelvis CT 06/29/16 16:58 IMPRESSION: Diffuse inflammatory changes are present with a rim enhancing 6.8 cm heterogeneous mass with contact with the bladder base as well as the sigmoid colon. There is also diffuse thickening in the rectum and distal sigmoid colon with 5 cm heterogeneously an enhancing nodular mass in the right lateral wall with diffuse wall thickening throughout this region. Moderate left-sided hydronephrosis and hydroureter due to the pelvic inflammatory mass. Multiple bilateral pulmonary nodules. Assessment & Plan - Diagnosis (1) Pelvic mass Is this a current diagnosis for this admission?: Yes (2) Rectal cancer Is this a current diagnosis for this admission?: YesPlan: 1. Status post Limited colonoscopy, tissue biopsy of elongated rectal mass consistent with neglected nonobstructing rectal with vaginal cuff penetration 2. Await final biopsies 3. Patient at risk for peritoneal, and pelvic sepsis due to dilation of the vaginal cuff secondary to malignancy. Patient is to undergo neoadjuvant chemoradiation, she may very well require diverting colostomy. We defer final recommendations to the receiving oncologic team. - Time Time Spent with patient: 35 or more minutes - Time spent [employer] telephone conversations on the evening at 07/02/2016 and a.m. of 07/03/2016 Critical Time spent with patient: 25-34 minutes
[2016-07-03 12:49] VITALS: BP 112/60
== END 2016-07-03 14:56 | disposition short-term general hospital (02) | DRG 988 ==
LOC: ER 12:09 → EH 16:49 → 3W 22:21
PROVIDERS: ADMIT Family Medicine; ATTEND Family Medicine
PROC: 30233N1 Transfusion of Nonautologous Red Blood Cells into Peripheral Vein, Percutaneous Approach (ICD-10-PCS; 2016-06-30)
PROC: 0UBGXZX Excision of Vagina, External Approach, Diagnostic (ICD-10-PCS; principal; 2016-07-02 11:30)
PROC: 0DBP8ZX Excision of Rectum, Via Natural or Artificial Opening Endoscopic, Diagnostic (ICD-10-PCS; 2016-07-02 11:30)
DX: C20 Malignant neoplasm of rectum (principal); C79.82 Secondary malignant neoplasm of genital organs; I50.32 Chronic diastolic (congestive) heart failure; K92.2 Gastrointestinal hemorrhage, unspecified; Z68.43 Body mass index [BMI] 50.0-59.9, adult; I83.208 Varicose veins of unspecified lower extremity with both ulcer of other part of lower extremity and inflammation; L97.819 Non-pressure chronic ulcer of other part of right lower leg with unspecified severity; L97.829 Non-pressure chronic ulcer of other part of left lower leg with unspecified severity; D50.0 Iron deficiency anemia secondary to blood loss (chronic); J44.9 Chronic obstructive pulmonary disease, unspecified; J45.909 Unspecified asthma, uncomplicated; I50.9 Heart failure, unspecified; E11.9 Type 2 diabetes mellitus without complications; K21.9 Gastro-esophageal reflux disease without esophagitis; I10 Essential (primary) hypertension; R07.9 Chest pain, unspecified; R91.8 Other nonspecific abnormal finding of lung field; R19.00 Intra-abdominal and pelvic swelling, mass and lump, unspecified site; E66.01 Morbid (severe) obesity due to excess calories; F17.210 Nicotine dependence, cigarettes, uncomplicated; Z91.14 Patient's other noncompliance with medication regimen; Z79.84 Long term (current) use of oral hypoglycemic drugs; Z79.01 Long term (current) use of anticoagulants; Z79.51 Long term (current) use of inhaled steroids; Z88.0 Allergy status to penicillin; Z88.1 Allergy status to other antibiotic agents; Z88.3 Allergy status to other anti-infective agents; Z75.1 Person awaiting admission to adequate facility elsewhere
CPT/HCPCS: 36415; 36430; 71010; 71250; 71275; 74177; 76856; 80048; 80053; 82272; 82550; 82553; 82607; 82728; 82746; 82962; 83540; 83550; 83690; 83735; 84466; 84484; 85025; 85045; 86850; 86900; 86901; 86920; 87045; 87205; 87493; 88305; 88341; 88342; 93005; 93010; 93976; 940; 96374; 99291; J2250; J2405; J2704; J3010; J3475; J3480; J3490; J7030; P9016; Q0138